=== PATIENT | female | born 1970 | race Caucasian/White ===

== ENCOUNTER 2023-05-18 01:40 | Day surgery (SDC) | payer OTHER, SELFPAY ==
[2023-05-04 09:51] VITALS: BMI 34.9
--- NOTE | 2023-05-16 10:42 | SUR.PREOP ---
Patient called regarding upcoming procedure. Reviewed preop instructions, appointment times, and procedure prep.
[2023-05-18 12:04] VITALS: BP 123/78; PULSE 84; RESP 20; TEMP 36.1; O2SAT 98; BMI 36.8
[2023-05-18] MEDS: LACTATED RINGERS 1,000 ML 150 ML IV CONT (12:06)
--- NOTE | 2023-05-18 12:36 | P.PNAN_ITS ---
Anes - Initial Pre Proc Eval Procedure: Operation Date: 05/18/23 14:00 Proposed Procedures p Colonoscopy - Renzo Moreira MD Date/Time: 05/18/23 12:36 Surgeon: Renzo Moreira MD Pre Op Diagnosis: Family History of Colon Cancer Patient Data Age: 52 Gender: F Height: 1.55 m Weight: 88.4 kg Last Vital Signs Temp 97.0 F L 05/18/23 12:04 Pulse 84 05/18/23 12:04 Resp 20 05/18/23 12:04 BP 123/78 05/18/23 12:04 Pulse Ox 98 05/18/23 12:04 O2 Del Method Room Air 05/18/23 12:04 Allergies Allergy/AdvReac Type Severity Reaction Status Date / Time sulfamethoxazole Allergy Rash Verified 05/18/23 12:02 [From Bactrim] trimethoprim [From Bactrim] Allergy Rash Verified 05/18/23 12:02 Home Medications Medication Instructions Recorded Confirmed Type levothyroxine 150 mcg tablet 150 mcg PO DAILY 05/04/23 05/18/23 History Patient hx anesthesia problems: none Family hx anesthesia problems: none Results Review: All pre-operative results and documents have been reviewed as part of the pre- operative evaluation. [facility] Social History Social History Smoking status: Never smoker Alcohol intake: current Alcohol use details: Rarely Substance use type: does not use Living arrangements: other Additional living arrangements comments: with sp Anes - Eval Final PreProcedure Day of Procedure 05/18/23 12:36 Patient weight: obese Heart: regular rate and rhythm Lungs: clear to auscultation Airway: Mallampati scale class II Neurological: alert and oriented Last oral intake: >/= 8 hours ASA classification: II Emergent: no Anesthetic plan: proceed Anesthesia type and monitoring: general GIVS and standard monitoring Results Review: All pre-operative results and documents have been reviewed as part of the pre- operative evaluation. Informed Consent: The patient's anesthetic plan and its attendant risks and benefits were discussed with the patient/family/POA. Questions were solicited and answers provided to the satisfaction of the patient/family/POA.
--- NOTE | 2023-05-18 13:16 | PM.HPGS ---
History of Present Illness History of Present Illness Consent: Risks, benefits, and alternatives have been discussed and questions answered. Patient agrees to proceed with procedure. Chief complaint: Family History of Colon Cancer Narrative: Heidy Crandall is a 52 year old female here for colonoscopy, parent had colon cancer, last colonoscopy 5 years ago Review of Systems Constitutional: Constitutional: Denies headache(s) and Denies weakness Eyes: Eyes: Denies blurry vision ENT: Reports Normal hearing present, Denies headache(s) and Denies neck pain Cardiovascular: Cardiovascular: Denies chest pain and Denies dyspnea Respiratory: Respiratory: Denies dyspnea Gastrointestinal: Gastrointestinal: Reports no additional gastrointestinal complaints Genitourinary: Genitourinary: Denies dysuria Musculoskeletal: Musculoskeletal: Denies neck pain Integumentary/Breasts: Skin/Breast: Denies dry skin Neurologic: Reports Normal hearing present, Denies headache(s) and Denies weakness Psychiatric: Psychiatric: Denies anxiety Endocrine: Endocrine: Denies change in body appearance Hematologic/Lymphatic: Hematologic/Lymphatic: Denies easy bleeding Allergic/Immunologic: Allergic/Immunologic: Denies urticaria PMF Past Medical History Medical History (Updated 05/18/23 @ 13:17 by Renzo Moreira MD) Family history of colon cancer Social History Social History Smoking status: Never smoker Alcohol intake: current Alcohol use details: Rarely Substance use type: does not use Living arrangements: other Additional living arrangements comments: with sp Meds Home Medications and Allergies Home Medications Medication Instructions Recorded Confirmed Type levothyroxine 150 mcg tablet 150 mcg PO DAILY 05/04/23 05/18/23 History Allergies Allergy/AdvReac Type Severity Reaction Status Date / Time sulfamethoxazole Allergy Rash Verified 05/18/23 12:02 [From Bactrim] trimethoprim [From Bactrim] Allergy Rash Verified 05/18/23 12:02 Vital Signs Vital Signs - 24 hr 05/18/23 12:04 Temperature 97.0 F L Pulse Rate 84 Respiratory Rate 20 Blood Pressure 123/78 Pulse Oximetry 98 Oxygen Delivery Room Air Exam Const: General: comfortable and no acute distress HENMT: Face/Nose/Sinus: Normal nares present Eyes: General: appearance normal, both eyes and all related structures Neck: Neck: no JVD Resp: Auscultation: clear to auscultation bilaterally Cardio: Rate: regular rate Rhythm: regular rhythm GI: Inspection: non-distended GI Palp: Yes Soft to palpation Skin: General skin exam: normal color Neuro: General: gait normal Speech: normal speech Extrem: General: normal to inspection Psych: Mental Status: mental status grossly normal Assessment and Plan Assessment and plan (1) Family history of colon cancer: Code(s): Z80.0 - Family history of malignant neoplasm of digestive organs Status: Acute Assessment and Plan: colonoscopy
[2023-05-18 13:41] VITALS: BP 124/76; PULSE 79; RESP 20; O2SAT 100
[2023-05-18 13:51] VITALS: BP 123/77; PULSE 81; RESP 16; O2SAT 99
[2023-05-18 14:01] VITALS: BP 128/81; PULSE 76; RESP 17; O2SAT 99
== END 2023-05-18 14:15 | disposition home or self-care (01) ==
PROVIDERS: PCP Internal Medicine; Visit Provider Internal Medicine Gastroenterology
PROC: 0DJD8ZZ Inspection of Lower Intestinal Tract, Via Natural or Artificial Opening Endoscopic (ICD-10-PCS; CPT 45378; principal; 2023-05-18 14:00)
DX: Z12.11 Encounter for screening for malignant neoplasm of colon (principal); D12.4 Benign neoplasm of descending colon; E66.9 Obesity, unspecified; Z68.36 Body mass index [BMI] 36.0-36.9, adult; Z80.0 Family history of malignant neoplasm of digestive organs
CPT/HCPCS: 45385; 88305; J7120

== ENCOUNTER 2024-02-10 09:46 | Outpatient (CLI) | payer OTHER, SELFPAY ==
--- NOTE | ~2024-02-10 | MR_ITS ---
EXAMINATION: MR knee RT wo con DATE: 02/10/2024 10:20 INDICATION: CHRONIC PAIN OF RIGHT KNEE TECHNIQUE: Magnetic resonance imaging (MRI) of the right knee was performed without intravenous contr ast. Sequences included axial PD-weighted FS FSE, coronal PD-weighted FSE and PD-weighted FS FSE, sag ittal PD-weighted FSE, and sagittal T2-weighted FS FSE. COMPARISON: None. FINDINGS: Medial compartment: Moderate diffuse cartilage thinning. Moderate osteophytosis. Complex medial meniscal tear involving t he anterior horn body and posterior horn, with anterior extrusion and a small meniscal flap on the po sterior apex. Lateral compartment: Mild diffuse cartilage thinning and osteophytosis. Meniscus intact. Patellofemoral compartment: Mild cartilage signal abnormality. Mild osteophytosis. Retinacula intact. Ligaments and tendons: The ACL, PCL, MCL, and LCL are intact. Remaining flexor and extensor tendons are intact. Fluid: No significant fluid collection. Small volume joint fluid. Osseous/other: No suspicious focal or diffuse marrow signal. IMPRESSION: Complex tear of the meniscus involving the anterior horn, body, and posterior horn. Anterior meniscal extrusion. Posterior apical meniscal flap. 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 Reviewed, dictated and finalized at location K. IMPRESSION: Complex tear of the meniscus involving the anterior horn, body, and posterior h orn. Anterior meniscal extrusion. Posterior apical meniscal flap. Tricompartmental osteoarthritic arthritis, moderate-severe in the medial compar tment.
== END 2024-02-10 09:47 | disposition home or self-care (01) ==
LOC: ANHIMG 09:51
PROVIDERS: PCP Internal Medicine; Visit Provider Orthopaedic Surgery
DX: S83.231A Complex tear of medial meniscus, current injury, right knee, initial encounter (principal); X58.XXXA Exposure to other specified factors, initial encounter
CPT/HCPCS: 73721

== ENCOUNTER 2024-09-12 01:12 | Day surgery (SDC) | payer OTHER, SELFPAY ==
[2024-08-30 08:33] VITALS: BMI 39.4
--- OUTSIDE RECORDS SUMMARY | 2024-09-12 01:15 | XMS_ITS | Encounter Summary ---
Author Organization [employer] Address 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
--- OUTSIDE RECORDS SUMMARY | 2024-09-12 01:15 | XMS_ITS | Clinical Summary ---
Author Organization [facility] Address [address] [place] [address] Phone Care Team Providers Care Deployment Technician Name Role Phone [facility], External Provider Primary Care Provider U navailable Allergies Active Allergy Reactions Criticality Noted Date Comments Sulfamethoxazole-Trimethoprim Rash Low 2010 Medications levothyroxine (SYNTHROID) 88 mcg Oral tablet Take 88 mcg by mouth daily skirt clipper. Active oxaprozin (DAYPRO) 600 mg Oral tablet Take 1,200 mg by mouth daily. Active vit-iron fumarate-FA ( S) 27-0.8 mg Oral Tab Take 1 Tab by mouth daily. Active calcium-vitamin D3 (OS-SANDEE 500+D) 500 mg(1,250mg) -200 unit Oral tablet Take 1 Tab by mouth daily. Active cyanocobalamin 1,000 mcg Oral Tab Take 1,000 mcg by mouth daily. Active Active Problems No known active problems Encounters Date Type Department Care Team Description 09/10/2024 External Device Data [facility]STRA[facility] Provider, Abstract 07/24/2024 External Device Data [facility]STRACTION Provider, Abstract 07/16/2024 External Device Data [facility]STRACTION Provider, Abstract 07/16/2024 External Device Data [facility] Provider, Abstract 07/13/2024 External Device Data [facility] Provider, Abstract 07/12/2024 External Device Data [facility] Provider, Abstract 07/10/2024 External Device Data [facility] Provider, Abstract 06/25/2024 External Device Data [facility]STRACTION Provider, Abstract from Last 3 Months Social History Tobacco Use Types Packs/Day Years Used Date Smoking Tobacco: Never Alcohol Use Standard Drinks/Week Comments Yes 0 (1 standard drink = 0.6 oz pur e alcohol) socially Comments Unknown Sex and Gender Information Value Date Recorded Sex Assigned at Not on file 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 Gender Identity Not on file Sexual Orientation Not on file Last Filed Vital Signs Vital Sign Reading Time Taken Comments Blood Pressure 115/68 03/10/2011 2:30 PM CDT Pulse 62 03/10/2011 2:30 PM CDT Temperature 36.4 C (97.6 F) 03/10/2011 2:30 PM CDT Respiratory Rate 16 03/10/2011 2:30 PM CDT Oxygen Saturation 98% 03/10/2011 2:30 PM CDT Inhaled Oxygen Concentration - - Weight 76.7 kg (169 lb) 03/10/2011 9:36 AM CDT Height 157.5 cm (5' 2 ) 03/03/2011 8:57 AM CDT Body Mass Index 30.91 03/03/2011 8:57 AM CDT Plan of Treatment Health Maintenance Due Date Last Done Comments Pre-Diabetes and Diabetes Screening 1970 HEPATITIS B VACCINES (1 of 3 - 19+ 3-dose series) 1989 HPV/Cotest (21-29) 09/02/1991 CERVICAL CANCER SCREENING 2000 HPV/Cotest (30-65) 2000 PAP SMEAR 2000 COLORECTAL SCREENING 09/02/2015 Colorectal Cancer Screening 09/02/2015 FIT-DNA Q 3 years 09/02/2015 FIT/FOBT Q 1 year 09/02/2015 Flex Sig/CT Colonography Q 5 years 09/02/2015 INFLUENZA VACCINE (#1) 2023 COVID-19 Vaccine (2023-2 5 season) 2024 03/17/2021, 07/01/2020, 06/03/2020 BREAST CANCER SCREENING 01/21/2025 01/22/20, 11/15/2022, 11/15/2022, Additional history exists DTAP/TDAP/TD VACCINES (4 - T d or Tdap) 03/31/2031 03/31/2021, 03/01/2021, 08/07/2019 ZOSTER VACCINE Completed 03/31/2021, 03/01/2021 Procedures Procedure Name Priority Date/Time Associated Diagnosis Comments MAMMO 3D NELLIE SCREEN BILAT W OR WO CAD Routine 01/22/2024 2:57 PM CDT Encounter for screening mammogram for malignant neoplasm of breast from Last 3 Months or Most Recently Relevant to Health Maintenance Results * MAMMO SCRN BILAT 3D NELLIE W OR WO CAD (01/22/2024 2:57 PM CDT) Anatomical Region Laterality Modality Breast Bilateral Mammography 01/22/2024 2:58 PM CDT Impressions 01/23/2024 10:48 AM CDT IMPRESSION: 1. BI-RADS Category 2. benign findings. Annual screening mammography recommended. 2. Breast Composition: The breasts are heterogeneously dense, which may obscure small masses or lesions. A) A negative report should not delay a biopsy if a dominant or clinically suspicious mass is present. B) Adenosis and dense breasts may obscure an underlying neoplasm. C) Study interpreted with computer-aided detection. MQSA BI-RADS Categories: Category 0 - needs additional imaging evaluation. Category 1 - negative. Category 2 - benign findings. Category 3 - probably benign findings, but short interval followup is recommended. Category 4 - suspicious abnormality-biopsy should be considered. Category 5 - highly suggestive of malignancy and appropriate action should be taken. Narrative 01/23/2024 10:48 AM CDT EXAMINATION: MAMMO 3D NELLIE SCREEN BILAT W OR WO CAD WITH 3-D TOMOSYNTHESIS AND COMPUTER-AIDED DETECTION (CAD) DATE: 01/22/2024 2:57 PM COMPARISON STUDIES: November 15, 2022, December 27, 2005. CLINICAL HISTORY: Screening, no complaints. Family history of breast CA, grandmother. Encounter for screening mammogram for malignant neoplasm of breast FINDINGS: Bilateral CC, MLO, 2-D and 3-D acquisitions. Scattered residual fibroglandular parenchyma . Similar in appearance and distribution to the previous exams. No evidence of dominant mass, architectural distortion, skin thickening, nipple retraction or suspicious clusters of microcalcifications. Benign calcifications redemonstrated. . Hari Tristan MD MAMMO ORDERABLES Final Result from Last 3 Months or Most Recently Relevant to Health Maintenance Insurance [employer] PPO Member Subscriber Plan / Payer (Ef fective 2022-Present) Name:Lowmaurice Heidy M Relation to Subscriber:Self Name:Raz Heidy M Payer ID:Not on file Group ID:Not on file Type:PPO Address: [facility] [id number] OPEN ACCESS O Advance Directives For more information, please contact: [phone] * Full Code (Latest Code Status on File) Date Activated Date Inactivated Comments 03/10/2011 12:39 PM 03/10/2011 5:44 PM * Full Code Date Activated Date Inactivated Comments 03/10/2011 12:34 PM 03/10/2011 12:39 PM * Full Code Date Activated Date Inactivated Comments 03/10/2011 9:23 AM 03/10/2011 12:34 PM Care Teams Deployment Technician Relationship Specialty Start Date End Date [facility], External Provider [address] [place] [address] PCP - General 03/03/11
--- OUTSIDE RECORDS SUMMARY | 2024-09-12 01:15 | XMS_ITS | Clinical Summary ---
Author Organization [facility] Address [address] [place] [address] Care Team Providers Care Pocket Cutter Name Role Phone Hector Ansari MD Primary Care Provider [phone] Allergies Active Allergy Reactions Criticality Noted Date Comments Sulfamethoxazole-Trimethop rim Unknown 02/13/2023 Bee Pollen Hives,Itching,Swelling 02/23/2023 Dog Dander Eyes Water & Itch,Itching,Rash,Sneezing Low 02/23/2023 Soy Allergy (Obsolete) Hives,Itching,Jhonatan sea and Vomiting,Rash Low 02/23/2023 Immunizations Immunization Administration Dates Next Due MODERNA COVID-19 (12+) MRNA, LNP-S, PF, 100 MCG/ 0.5 ML DOSE 03/17/2021,07/01/2020,06/03/2020 Social History Tobacco Use Types Packs/Day Years Used Date Smoking Tobacco: Never Assessed Comments Unknown Sex and Gender Information Value Date Recorded Sex Assigned at Not on file Legal Sex Female 7:33 PM CDT Gender Identity Not on file Sexual Orientation Not on file Plan of Treatment Health Maintenance Due Date Last Done Comments Cervical Cancer Screening Pa p Smear (Age 30 to 64) Every 3 Years 1970 Colorectal Cancer Screening Colonoscopy (10 Years) 1970 Annual Physical 1973 Hepatitis C 1988 Hepatitis B Vaccines (1 of 3 - 19+ 3-dose series) 1989 Cervical Cancer Screening Pa p with HPV Testing (Age 30 to 64) Every 5 Years 2000 Cervical Cancer Screening wi th HPV 2000 Mammogram Screening 2010 Pneumococcal Vaccine: 50+ Years (1 of 1 - PCV) 2020 Zoster Vaccines (1 of 2) 2020 COVID-19 Vaccine (4 - 2023-2 5 season) 2024 03/17/2021, 07/01/2020, 06/03/2020 DTaP, Tdap and Td Vaccines ( 2 - Td or Tdap) 08/06/2029 08/07/2019 Meningococcal B Vaccine Aged Out No l onger eligible based on patient's age to complete this topic Meningococcal Vaccine Aged Out No ryan ariela eligible based on patient's age to complete this topic RSV Immunizations Under 20 Months Aged Out No longer eligible b ased on patient's age to complete this [place] [address] [facility] Care Teams Pocket Cutter Relationship Specialty Start Date End [place] [phone] (Work) PCP - General 06/03/14
--- OUTSIDE RECORDS SUMMARY | 2024-09-12 01:15 | XMS_ITS | Encounter Summary ---
Author Organization [facility] Address [address] [place] [address] Care Team Providers Care Shore Working Supervisor Name Role Phone Imani, External Provider Primary Care Provider Jeremías ugalde Encounter Details Date Type Department Care Team (Late st Contact Info) Description 09/10/2024 External Device Data [facility] Provider, Abstract NO ADDRESS ON FILE Social History Tobacco Use Types Packs/Day Years Used Date Smoking Tobacco: Never Alcohol Use Standard Drinks/Week Comments Yes 0 (1 standard drink = 0.6 oz pur e alcohol) socially Comments Unknown Sex and Gender Information Value Date Recorded Sex Assigned at Not on file 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
--- OUTSIDE RECORDS SUMMARY | 2024-09-12 01:15 | XMS_ITS | Data Portability ---
Author Organization 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 Studies ordered as below. Discussed plan with patient/caregiver , who expressed understanding. Follow up as noted below. Not available 07/26/2022 11:36:27 01/26/2023 01/26/2023 Recommends healthy nutrition, including a diet rich in fruits and vegetables, minimizing simple carbohydrates, salt, and saturated fats. Encouraged regular cardiovascular exercise such as walking at least 30 minutes daily, 5 times per week. Not available 01/26/2023 10:18:36 07/27/2023 07/27/2023 Recommends healthy nutrition, including a diet rich in fruits and vegetables, minimizing simple carbohydrates, salt, and saturated fats. Encouraged regular cardiovascular exercise such as walking at least 30 minutes daily, 5 times per week. Not available 07/27/2023 12:27:57 03/08/2024 03/08/2024 Patient presente d for follow up. Studies ordered as below. Discussed plan with patient/caregiver , who expressed understanding. Follow up as noted below. [email or web address] Not available 03/08/2024 12:32:30 06/10/2024 06/10/2024 Patient presente d for follow up. Studies ordered as below. Discussed plan with patient/caregiver , who expressed understanding. Follow up as noted below. Not available 06/10/2024 12:24:43 Plan of Treatment Reminders Order Date Submit Date Provider Last Modified By Organization Details Last Modified Time Details Appointments ESTABLISH ED PATIENT 15 2024 08:15A Mario Tristan MD Not available Not available Not available Lab urinalysi s complete, reflex culture 2023 024 [email or web address] [facility], [address], [address], [place], [address], 03/15/2024 09:10:15 lipid panel, serum 2023 024 [email or web address] [facility], [address], [address], [place], [address], 03/15/2024 09:10:14 CMP, serum or plasma 2023 024 [email or web address] [facility], [address], [address], [place], [address], 03/15/2024 09:10:14 ANURADHA (antinucl ear antibodie s) panel, serum 2023 024 ALEX [facility], [address], [address], [place], [address], 12/08/2023 14:36:26 rf (rheumato id factor), serum 2023 024 ALEX [facility], [address], [place], [address], 12/08/2023 14:36:28 ccp (cyclic citrullin ated peptide) igg, serum 2023 024 ALEX [facility], [address], [place], [address], 07/27/2023 12:35:16 ESR (erythroc yte sedimenta tion rate), blood 2023 024 ALEX [facility], [address], [place], [address], 12/08/2023 14:36:31 C-reactiv e protein, quantitat lucinda, serum or plasma 2023 024 ALEX [facility], [address], [place], [address], 07/27/2023 12:35:15 HbA1c (hemoglob in A1c), blood 2023 024 [email or web address] [facility], [address], [place], [address], 08/03/2023 08:25:30 HIV 1 + 2, meaningfu l use set 2023 024 ALEX [facility], [address], [place], [address], 12/08/2023 14:36:29 lipid panel, serum 2022 023 [email or web address] [facility], [address], [place], [address], 02/02/2023 08:17:44 CBC w/ auto diff 2022 023 [email or web address] [facility], [address], [place], [address], 02/02/2023 08:17:44 CMP, serum or plasma 2022 023 mbenfer [facility], [address], [place], [address], 02/02/2023 08:17:45 HbA1c (hemoglob in A1c), blood 2022 023 [email or web address] [facility], [address], [place], [address], 02/02/2023 08:17:45 TSH + free T4, serum 2022 023 mariel [facility], [address], [place], [address], 02/02/2023 08:17:44 T3, free, serum or plasma 2022 023 mariel [facility], [address], [place], [address], 02/02/2023 08:17:44 HIV 1 + 2, meaningfu l use set 2022 023 ALEX [facility], [address], [place], [address], 01/26/2023 10:41:50 urinalysi s complete, reflex culture 2022 023 ALEX [facility], [address], [place], [address], 07/29/2022 07:37:25 TSH + free T4, serum 2022 023 ALEX [facility], [address], [place], [address], 07/29/2022 07:37:25 T3, free, serum or plasma 2022 023 ALEX [facility], [address], [place], [address], 07/29/2022 07:37:26 Referral gynecolog ist referral 2024 025 [email or web address] Kwesi Johnson MD, [address] [place], [address], 07/23/2024 19:49:43 gastroent erologist referral - To eval and treat. Thank you 2024 025 mariel arora MD, [address], [address], [place], [address], 07/08/2024 08:33:04 gynecolog ist referral 2023 024 mariel Johnson MD, [address] [place], [address], 08/24/2023 08:22:36 gynecolog ist referral 2022 023 [email or web address] Kwesi Johnson MD, [address] [place], [address], 02/23/2023 08:49:29 gastroent erologist referral 2022 023 [email or web address] Not available 02/23/2023 08:49:29 podiatris t referral 2022 023 mariel Christianson DP, [address] [place], [address], 07/21/2023 08:10:44 Procedures None recorded. Surgeries None recorded. Imaging bone density 2024 025 mariel [facility] Patient Access Centralized Scheduling, Centralized Scheduling, [address], [place], [address], 06/24/2024 08:37:31 bone density 2023 024 mariel [facility], [address], [place], [address], 08/10/2023 08:13:46 MAMMO, screening , digital, bilateral 2023 024 ALEX [facility], [address], [place], [address], 01/25/2024 00:22:15 MAMMO, screening , digital, bilateral 2022 023 [facility], [address], [place], [address], 01/26/2023 10:45:34 XR, calcaneus 2022 023 [facility], [address], [address], [place], [address], 08/04/2022 08:26:42 US, thyroid 2022 023 [email or web address] [facility], [address], [address], [place], [address], 08/09/2022 08:38:14 Medication Orders duloxetin e 30 mg capsule,d elayed release 2024 025 ALEX Not available 06/10/2024 12:50:00 levothyro xine 137 mcg tablet 2024 025 ALEX Not available 06/10/2024 12:50:01 phentermi ne 37.5 mg tablet 2024 025 ALEX Not available 06/10/2024 12:50:02 Celebrex 200 mg capsule 2023 024 ALEX Not available 03/08/2024 13:33:45 duloxetin e 30 mg capsule,d elayed release 2023 024 ALEX Not available 03/08/2024 13:33:46 duloxetin e 60 mg capsule,d elayed release 2023 025 ALEX Not available 06/10/2024 12:31:36 liothyron ine 5 mcg tablet 2022 023 Not available 07/27/2023 12:11:32 phentermi ne 37.5 mg tablet 2022 023 Not available 07/27/2023 12:27:06 cefdinir 300 mg capsule 2022 023 Not available 06/10/2024 12:26:10 levothyro xine 137 mcg tablet 2022 023 Not available 04/17/2023 07:21:28 liothyron ine 5 mcg tablet 2022 023 Not available 07/27/2023 12:11:32 phentermi ne 37.5 mg tablet 2022 023 Not available 07/27/2023 12:27:06 Patient TargetsNo targets recorded. Patient Instructions Encounter Date Encounter Id Patient Instructions Last Modified By Organization Details Last Modified Time 01/26/2023 [id number] advised to lose weight Not available 01/26/2023 10:37:32 Discussed and explained advance directives such as standard forms to the {{patient caregiv er patient and caregiver}}. Face to face discussion lasted for a duration of ___ minutes. Not available 01/26/2023 10:18:15 07/27/2023 [id number] advised to lose weight [email or web address] Not available 07/27/2023 12:35:05 Reason for Referral Traffic Or System Dispatcher Referral for Heel pain Referring Physician: [facility], Encounter Date: 07/26/2022 Grill Associate Referral for Family history of cancer of colon Referring Physician: Hari Tr[facility], Encounter Date: 01/26/2023 Patient Accounts Manager Referral for Gy necologic examination Referring Physician: [facility]ari [facility], Encounter Date: 01/26/2023 Patient Accounts Manager Referral for Gy necologic examination Referring Physician: Hari [facility], Encounter Date: 07/27/2023 Patient Accounts Manager Referral for Gy necologic examination Referring Physician: Hari Tr[facility], Encounter Date: 06/10/2024 Grill Associate 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 Thank you Referring Physician: Hari Tr[facility], Encounter Date: 06/10/2024 Results Created Date Observation Date Name Description Value Unit Range Abnormal Flag Note LastModifiedBy Organization Detail LastModifiedTime 07/28/19 23 07/28/2022 TSH+F REE T4 TSH 4.560 uIU/m L 0.450- 4.500 above high normal Not Available [facility] ([facility]) [address] [place], [address], 07/29/2022 07:37:25 07/28/1907/28/2022 TSH+F REE T4 T4,free(dire ct) 1.13 NG/dL 0.82-1 .77 Not Available [facility] ([facility]) [address] [place], [address], 07/29/2022 07:37:25 07/28/1907/28/2022 UA/M W/RFL X CULTU RE, ROUTI NE specific gravity 1.018 1.005- 1.030 Not Available [facility] ([facility]) [address] [place], [address], 07/29/2022 07:37:25 07/28/1907/28/2022 UA/M W/RFL X CULTU RE, ROUTI NE pH 5.5 5.0-7. 5 Not Available [facility] ([facility]) [address] [place], [address], 07/29/2022 07:37:25 07/28/1907/28/2022 UA/M W/RFL X CULTU RE, ROUTI NE urine-color YELLOW yellow Not Available [facility] ([facility]) [address] [place], [address], 07/29/2022 07:37:25 07/28/1907/28/2022 UA/M W/RFL X CULTU RE, ROUTI NE appearance CLEAR clear Not Available [facility] ([facility]) [address] [place], [address], 07/29/2022 07:37:25 07/28/1907/28/2022 UA/M W/RFL X CULTU RE, ROUTI NE WBC esterase 2+ negati ve abnormal Not Available [facility] ([facility]) [address] [place], [address], 07/29/2022 07:37:25 07/28/1907/28/2022 UA/M W/RFL X CULTU RE, ROUTI NE protein NEGATI VE negati ve/tra ce Not Available [facility] ([facility]) [address] [facility], [place], [address], 07/29/2022 07:37:25 07/28/1907/28/2022 UA/M W/RFL X CULTU RE, ROUTI NE glucose NEGATI VE negati ve Not Available [facility] ([facility]) [address] [place], [address], 07/29/2022 07:37:25 07/28/1907/28/2022 UA/M W/RFL X CULTU RE, ROUTI NE ketones NEGATI VE negati ve Not Available [facility] ([facility]) [address] [place], [address], 07/29/2022 07:37:25 07/28/1907/28/2022 UA/M W/RFL X CULTU RE, ROUTI NE occult blood NEGATI VE negati ve Not Available [facility] ([facility]) [address] [place], [address], 07/29/2022 07:37:25 07/28/1907/28/2022 UA/M W/RFL X CULTU RE, ROUTI NE bilirubin NEGATI VE negati ve Not Available [facility] ([facility]) [address] [place], [address], 07/29/2022 07:37:25 07/28/1907/28/2022 UA/M W/RFL X CULTU RE, ROUTI NE urobilinogen ,semi-qn 0.2 mg/dL 0.2-1. 0 Not Available [facility] ([facility]) [address] [place], [address], 07/29/2022 07:37:25 07/28/1907/28/2022 UA/M W/RFL X CULTU RE, ROUTI NE nitrite, urine NEGATI VE negati ve Not Available [facility] ([facility]) [address] [place], [address], 07/29/2022 07:37:25 07/28/1907/28/2022 UA/M W/RFL X CULTU RE, ROUTI NE microscopic examination SEE BELOW: Micro scopi c was indic ated and was perfo rmed. Not Available [facility] ([facility]) [address] [place], [address], 07/29/2022 07:37:25 07/28/19 23 07/28/2022 UA/M W/RFL X CULTU RE, ROUTI NE WBC 0-5 /hpf 0 - 5 Not Available [facility] ([facility]) [address] [facility], [place], [address], 07/29/2022 07:37:25 07/28/19 23 07/28/2022 UA/M W/RFL X CULTU RE, ROUTI NE RBC NONE SEEN /hpf 0 - 2 Not Available [facility] ([facility]) [address] [place], [address], 07/29/2022 07:37:25 07/28/19 23 07/28/2022 UA/M W/RFL X CULTU RE, ROUTI NE epithelial cells (non renal) 0-10 /hpf 0 - 10 Not Available [facility] ([facility]) [address] [place], [address], 07/29/2022 07:37:25 07/28/1907/28/2022 UA/M W/RFL X CULTU RE, ROUTI NE epithelial cells (renal) QUEBRACHO TANNER Not Available [facility] ([facility]) [address] [place], [address], 07/29/2022 07:37:25 07/28/1907/28/2022 UA/M W/RFL X CULTU RE, ROUTI NE casts NONE SEEN /lpf none seen Not Available [facility] ([facility]) [address] [facility], [place], [address], 07/29/2022 07:37:25 07/28/1907/28/2022 UA/M W/RFL X CULTU RE, ROUTI NE cast type QUEBRACHO TANNER Not Available [facility] ([facility]) [address] [facility], [place], [address], 07/29/2022 07:37:25 07/28/19 23 07/28/2022 UA/M W/RFL X CULTU RE, ROUTI NE crystals QUEBRACHO TANNER Not Available [facility] ([facility]) [address] [facility], [place], [address], 07/29/2022 07:37:25 07/28/19 23 07/28/2022 UA/M W/RFL X CULTU RE, ROUTI NE crystal type QUEBRACHO TANNER Not Available [facility] ([facility]) [address] [facility], [place], [address], 07/29/2022 07:37:25 07/28/19 23 07/28/2022 UA/M W/RFL X CULTU RE, ROUTI NE mucus threads QUEBRACHO TANNER Not Available [facility] ([facility]) [address] [facility], [place], [address], 07/29/2022 07:37:25 07/28/19 23 07/28/2022 UA/M W/RFL X CULTU RE, ROUTI NE bacteria NONE SEEN none seen/f ew Not Available [facility] ([facility]) [address] [facility], [place], [address], 07/29/2022 07:37:25 07/28/19 23 07/28/2022 UA/M W/RFL X CULTU RE, ROUTI NE yeast QUEBRACHO TANNER Not Available [facility] ([facility]) [address] [facility], [place], [address], 07/29/2022 07:37:25 07/28/19 23 07/28/2022 UA/M W/RFL X CULTU RE, ROUTI NE trichomonas QUEBRACHO TANNER Not Available [facility] ([facility]) [address] [facility], [place], [address], 07/29/2022 07:37:25 07/28/19 23 07/28/2022 UA/M W/RFL X CULTU RE, ROUTI NE comment QUEBRACHO TANNER Not Available [facility] ([facility]) [address] [facility], [place], [address], 07/29/2022 07:37:25 07/28/19 23 07/28/2022 UA/M W/RFL X CULTU RE, ROUTI NE microscopic examination QUEBRACHO TANNER Not Available [facility]) [address] [facility], [place], [address], 07/29/2022 07:37:25 07/28/19 23 07/28/2022 UA/M W/RFL X CULTU RE, ROUTI NE urinalysis reflex COMMEN T This speci men has refle xed to a Urine Cultu re. Not Available [facility] ([facility]) [address] [facility], [place], [address], 07/29/2022 07:37:25 07/28/19 23 07/29/2022 UA/M W/RFL X CULTU RE, ROUTI NE urine culture, routine FINAL REPORT Not Available [facility] ([facility]) [address] [facility], [place], [address], 07/29/2022 07:37:25 07/28/19 23 07/29/2022 UA/M W/RFL X CULTU RE, ROUTI NE result 1 COMMEN T Cultu re shows less than 10,00 0 colon y formi ng units of bacte will per brent liter of urine . This colon y count is not gener ally consi dered to be clini randi tank bishop Not Available [facility] ([facility]) [address] [place], [address], 07/29/2022 07:37:25 07/28/19 23 07/28/2022 TRIIO DOTHY DORINDA E (T3), FREE triiodothyro nine (T3), free 2.3 pg/mL 2.0-4. 4 Not Available [facility] ([facility]) [address] [place], [address], 07/29/2022 07:37:26 04/06/2004/11/2023 THYRO ID STIMU LATIN G HORMO NE TSH-icma 6.1 uu/mL above high normal Refer ence Range : Non-P regna nt Adult 0.450 -4.50 0 Pregn pieter First Trime ster 0.100 -4.00 0 Secon d Trime ster 0.200 -4.00 0 Third Trime ster 0.300 -4.50 0 Not Available [facility] [address] [place] [address], [address], 04/12/2023 07:36:58 04/06/2004/07/2023 TRIIO DOTHY DORINDA E (T3), FREE triiodothyro nine (T3), free 2.7 pg/mL 2.0-4. 4 Not Available [facility] ([facility]) [address] [place], [address], 04/12/2023 07:37:00 04/06/2004/07/2023 T4,FR EE(DI RECT) T4,free(dire ct) 1.12 NG/dL 0.82-1 .77 Not Available [facility] ([facility]) [address] [place], [address], 04/12/2023 07:37:00 12/07/19 24 12/07/2023 ANTIN UCLEA R AB 9 BY MULTI PLEX see below: COMMEN T [employer] [employer] [employer] [employer] i[facility] n ----- ----- ----- ----- ----- ----- ----- ----- ----- ----- ----- ----- Condi laston Paresh ency ----- ----- ----- ----- - ----- ----- ----- ----- ---- ----- ---- Antin uclea r Antib josé miguel, SLE, mixed conne ctive Direc t (ANURADHA- D) tissu e disea ses ----- ----- ----- ----- - ----- ----- ----- ----- ---- ----- ---- dsDNA SLE 40 - 60% ----- ----- ----- ----- - ----- ----- ----- ----- ---- ----- ---- Chrom atin Drug induc ed SLE 90% SLE 48 - 97% ----- ----- ----- ----- - ----- ----- ----- ----- ---- ----- ---- SSA (Ro) SLE 25 - 35% Sjogr en's Syndr ome 40 - 70% Neona abhishek Lupus 100% ----- ----- ----- ----- - ----- ----- ----- ----- ---- ----- ---- SSB (La) SLE 10% Sjogr en's Syndr ome 30% ----- ----- ----- ----- - ----- ----- ----- ----- --- ----- ---- Sm (anti -Salomón h) SLE 15 - 30% ----- ----- ----- ----- - ----- ----- ----- ----- --- ----- ---- COMM[employer] EQUIP[employer] MECH[employer]IC Mixed Conne ctive Tissu e Disea se 95% (U1 nRNP, SLE 30 - 50% anti- ribon ucleo prote in) Polym yosit is and/o r [place] tomyo sitis 20% ----- ----- ----- ----- - ----- ----- ----- ----- ---- ----- ---- Scl-7 0 (anti DNA Scler oderm a (diff use) 20 - 35% topoi jerrell ase) Crest 13% ----- ----- ----- ----- - ----- ----- ----- ----- ---- ----- ---- Elidia-1 Polym yosit is and/o r [place] tomyo sitis 20 - 40% ----- ----- ----- ----- - ----- ----- ----- ----- ---- ----- ---- Centr omere B Scler oderm a - Crest varia nt 80% Not Available [facility] ([facility]) [address] [facility], [place], [address], 12/08/2023 14:36:26 12/07/19 24 12/08/2023 ANTIN UCLEA R AB 9 BY MULTI PLEX anti-DNA (ds) Ab qn 1 IU/mL 0-9 Negat lucinda <5 Equiv ocal 5 - 9 Posit lucinda >9 Not Available [facility] ([facility]) [address] [facility], [place], [address], 12/08/2023 14:36:26 12/07/19 24 12/08/2023 ANTIN UCLEA R AB 9 BY MULTI PLEX change consultant antibodies 0.3 ai 0.0-0. 9 Not Available [facility] ([facility]) [address] [facility], [place], [address], 12/08/2023 14:36:26 12/07/19 24 12/08/2023 ANTIN UCLEA R AB 9 BY MULTI PLEX hastings antibodies <0.2 ai 0.0-0. 9 Not Available [facility] ([facility]) [address] [place], [address], 12/08/2023 14:36:26 12/07/19 24 12/08/2023 ANTIN UCLEA R AB 9 BY MULTI PLEX antisclerode rma-70 antibodies <0.2 ai 0.0-0. 9 Not Available [facility] ([facility]) [address] [place], [address], 12/08/2023 14:36:26 12/07/19 24 12/08/2023 ANTIN UCLEA R AB 9 BY MULTI PLEX sjogren's anti-ss-A <0.2 ai 0.0-0. 9 Not Available [facility] ([facility]) [address] [place], [address], 12/08/2023 14:36:26 12/07/19 24 12/08/2023 ANTIN UCLEA R AB 9 BY MULTI PLEX sjogren's anti-ss-B <0.2 ai 0.0-0. 9 Not Available [facility] ([facility]) [address] [place], [address], 12/08/2023 14:36:26 12/07/19 24 12/08/2023 ANTIN UCLEA R AB 9 BY MULTI PLEX antichromati n antibodies <0.2 ai 0.0-0. 9 Not Available [facility] ([facility]) [address] [place], [address], 12/08/2023 14:36:26 12/07/19 24 12/08/2023 ANTIN UCLEA R AB 9 BY MULTI PLEX anti-elidia-1 <0.2 ai 0.0-0. 9 Not Available [facility] ([facility]) [address] [facility], [place], [address], 12/08/2023 14:36:26 12/07/19 24 12/08/2023 ANTIN UCLEA R AB 9 BY MULTI PLEX anti-centrom ere B antibodies <0.2 ai 0.0-0. 9 Not Available [facility] ([facility]) [address] [place], [address], 12/08/2023 14:36:26 12/07/19 24 12/08/2023 HEMOG LOBIN A1C hemoglobin A1C 5.7 % 4.8-5. 6 above high normal Predi abete s: 5.7 - 6.4 Diabe aidan: >6.4 Glyce viki contr ol for adult s with diabe aidan: <7.0 Not Available [facility] ([facility]) [address] [place], [address], 12/08/2023 14:36:27 12/07/19 24 12/08/2023 RHEUM ATOID FACTO R (RF) rheumatoid factor (rf) 10.8 IU/mL <14.0 normal Not Available [facility] [address] [place], [address], 12/08/2023 14:36:28 12/07/19 24 12/08/2023 HIV AB/P2 4 AG WITH REFLE X HIV Ab/P24 Ag screen NON REACTI VE non reacti ve HIV-1 /HIV- 2 antib odies and HIV-1 p24 antig en were NOT detec shala. There is no labor atory evide nce of HIV infec tion. HIV Negat lucinda Not Available [facility] ([facility]) [address] [facility], [place], [address], 12/08/2023 14:36:29 12/07/19 24 12/08/2023 ANTI- CCP AB, IGG/I NH anti-ccp Ab, IgG/IgA 5 units 0-19 Negat lucinda <20 Weak posit lucinda 20 - 39 Moder ate posit lucinda 40 - 59 Stron g posit lucinda >59 Not Available [facility] ([facility]) [address] [facility], [place], [address], 12/08/2023 14:36:30 12/07/19 24 12/08/2023 SEDIM ENTAT ION RATE- WESTE RGREN sedimentatio n rate-westerg ambreen 4 mm/HR 0-40 normal Not Available [facility] ([facility]) [address] [facility], [place], [address], 12/08/2023 14:36:31 12/07/19 24 12/08/2023 C-EBENEZER CTIVE PROTE IN, QUANT C-reactive protein, quant 5 mg/L 0-10 normal Not Available [facility] ([facility]) [address] [facility], [place], [address], 12/08/2023 14:36:32 03/18/20 24 03/19/2024 COMP. METAB OLIC PANEL (14) glucose 96 mg/dL 70-99 normal Not Available [facility] ([facility]) [address] [place], [address], 03/20/2024 06:37:09 03/18/20 24 03/19/2024 COMP. METAB OLIC PANEL (14) BUN 10 mg/dL 6-24 normal Not Available [facility] ([facility]) [address] [place], [address], 03/20/2024 06:37:09 03/18/20 24 03/19/2024 COMP. METAB OLIC PANEL (14) creatinine 0.80 mg/dL 0.57-1 .00 normal Not Available [facility] ([facility]) [address] [facility], [place], [address], 03/20/2024 06:37:09 03/18/20 24 03/19/2024 COMP. METAB OLIC PANEL (14) eGFR 88 mL/mi n/1.7 3 >59 normal Not Available [facility] ([facility]) [address] [facility] [place], [address], 03/20/2024 06:37:09 03/18/20 24 03/19/2024 COMP. METAB OLIC PANEL (14) BUN/creatini ne ratio 13 9-23 normal Not Available [facility] ([facility]) [address] [facility], [place], [address], 03/20/2024 06:37:09 03/18/20 24 03/19/2024 COMP. METAB OLIC PANEL (14) sodium 143 mmol/ L 134-14 4 normal Not Available [facility] ([facility]) [address] [facility], [place], [address], 03/20/2024 06:37:09 03/18/20 24 03/19/2024 COMP. METAB OLIC PANEL (14) potassium 4.7 mmol/ L 3.5-5. 2 normal Not Available [facility] ([facility]) [address] [facility] [place], [address], 03/20/2024 06:37:09 03/18/20 24 03/19/2024 COMP. METAB OLIC PANEL (14) chloride 105 mmol/ L 96-106 normal Not Available [facility] ([facility]) [address] [facility] [place], [address], 03/20/2024 06:37:09 03/18/20 24 03/19/2024 COMP. METAB OLIC PANEL (14) carbon dioxide, total 26 mmol/ L 20-29 normal Not Available [facility] ([facility]) [address] [facility] [place], [address], 03/20/2024 06:37:09 03/18/20 24 03/19/2024 COMP. METAB OLIC PANEL (14) calcium 9.3 mg/dL 8.7-10 .2 normal Not Available [facility] ([facility]) [address] [facility] [place], [address], 03/20/2024 06:37:09 03/18/20 24 03/19/2024 COMP. METAB OLIC PANEL (14) protein, total 6.6 g/dL 6.0-8. 5 normal Not Available [facility] ([facility]) [address] [facility] [place], [address], 03/20/2024 06:37:09 03/18/20 24 03/19/2024 COMP. METAB OLIC PANEL (14) albumin 4.2 g/dL 3.8-4. 9 normal Not Available [facility] ([facility]) [address] [facility] [place], [address], 03/20/2024 06:37:09 03/18/20 24 03/19/2024 COMP. METAB OLIC PANEL (14) globulin, total 2.4 g/dL 1.5-4. 5 Not Available [facility] ([facility]) [address] [facility] [place], [address], 03/20/2024 06:37:09 03/18/20 24 03/19/2024 COMP. METAB OLIC PANEL (14) bilirubin, total 0.5 mg/dL 0.0-1. 2 normal Not Available [facility] ([facility]) [address] [facility] [place], [address], 03/20/2024 06:37:09 03/18/20 24 03/19/2024 COMP. METAB OLIC PANEL (14) alkaline phosphatase 113 IU/L 44-121 normal Not Available [facility] ([facility]) [address] [facility] [place], [address], 03/20/2024 06:37:09 03/18/20 24 03/19/2024 COMP. METAB OLIC PANEL (14) AST (SGOT) 19 IU/L 0-40 normal Not Available [facility] ([facility]) [address] [place], [address], 03/20/2024 06:37:09 03/18/20 24 03/19/2024 COMP. METAB OLIC PANEL (14) ALT (SGPT) 16 IU/L 0-32 normal Not Available [facility] ([facility]) [address], [place], [address], 03/20/2024 06:37:09 03/18/20 24 03/19/2024 UA/M W/RFL X CULTU RESTACYI NE specific gravity 1.021 1.005- 1.030 normal Not Available [facility] ([facility]) [address] [place], [address], 03/20/2024 06:37:11 03/18/20 24 03/19/2024 UA/M W/RFL X CULTJeremías REGINA NE pH 6.5 5.0-7. 5 normal Not Available [facility] ([facility]) [address] [place], [address], 03/20/2024 06:37:11 03/18/20 24 03/19/2024 UA/M W/RFL X CULTGNIA HEREDIA NE urine-color YELLOW yellow Not Available [facility] ([facility]) [address] [facility], [place], [address], 03/20/2024 06:37:11 03/18/20 24 03/19/2024 UA/M W/RFL X CULTU REGINA NE appearance CLOUDY clear abnormal Not Available [facility] ([facility]) [address] [facility] [place], [address], 03/20/2024 06:37:11 03/18/20 24 03/19/2024 UA/M W/RFL X CULTU RE, ROUTI NE WBC esterase 1+ negati ve abnormal Not Available [facility] ([facility]) [address] [place], [address], 03/20/2024 06:37:11 03/18/20 24 03/19/2024 UA/M W/RFL X CULTU RE, ROUTI NE protein TRACE negati ve/tra ce Not Available [facility] ([facility]) [address] [facility], [place], [address], 03/20/2024 06:37:11 03/18/2003/19/2024 UA/M W/RFL X CULTU RE, ROUTI NE glucose NEGATI VE negati ve Not Available [facility] ([facility]) [address] [facility], [place], [address], 03/20/2024 06:37:11 03/18/20 24 03/19/2024 UA/M W/RFL X CULTU RE, ROUTI NE ketones NEGATI VE negati ve Not Available [facility] ([facility]) [address] [place], [address], 03/20/2024 06:37:11 03/18/20 24 03/19/2024 UA/M W/RFL X CULTU RE, ROUTI NE occult blood NEGATI VE negati ve Not Available [facility] ([facility]) [address] [place], [address], 03/20/2024 06:37:11 03/18/20 24 03/19/2024 UA/M W/RFL X CULTU RE, ROUTI NE bilirubin NEGATI VE negati ve Not Available [facility] ([facility]) [address] [place], [address], 03/20/2024 06:37:11 03/18/20 24 03/19/2024 UA/M W/RFL X CULTU RE, ROUTI NE urobilinogen ,semi-qn 0.2 mg/dL 0.2-1. 0 normal Not Available [facility] ([facility]) [address] [facility], [place], [address], 03/20/2024 06:37:11 03/18/20 24 03/19/2024 UA/M W/RFL X CULTU RE, ROUTI NE nitrite, urine NEGATI VE negati ve Not Available [facility] ([facility]) [address] [facility], [place], [address], 03/20/2024 06:37:11 03/18/20 24 03/19/2024 UA/M W/RFL X CULTU RE, ROUTI NE microscopic examination SEE BELOW: Micro scopi c was indic ated and was perfo rmed. Not Available [facility] ([facility]) [address] [facility], [place], [address], 03/20/2024 06:37:11 03/18/20 24 03/19/2024 UA/M W/RFL X CULTU RE, ROUTI NE WBC NONE SEEN /hpf 0 - 5 Not Available [facility] ([facility]) [address] [facility], [place], [address], 03/20/2024 06:37:11 03/18/20 24 03/19/2024 UA/M W/RFL X CULTU RE, ROUTI NE RBC 0-2 /hpf 0 - 2 Not Available [facility] ([facility]) [address] [facility], [place], [address], 03/20/2024 06:37:11 03/18/20 24 03/19/2024 UA/M W/RFL X CULTU RE, ROUTI NE epithelial cells (non renal) 0-10 /hpf 0 - 10 Not Available [facility] ([facility]) [address] [facility], [place], [address], 03/20/2024 06:37:11 03/18/20 24 03/19/2024 UA/M W/RFL X CULTU RE, ROUTI NE epithelial cells (renal) QUEBRACHO TANNER Not Available [facility] ([facility]) [address] [facility], [place], [address], 03/20/2024 06:37:11 03/18/20 24 03/19/2024 UA/M W/RFL X CULTU RE, ROUTI NE casts NONE SEEN /lpf none seen Not Available [facility] ([facility]) [address] [facility], [place], [address], 03/20/2024 06:37:11 03/18/20 24 03/19/2024 UA/M W/RFL X CULTU RE, ROUTI NE cast type QUEBRACHO TANNER Not Available [facility] ([facility]) [address] [facility], [place], [address], 03/20/2024 06:37:11 03/18/20 24 03/19/2024 UA/M W/RFL X CULTU RE, ROUTI NE crystals QUEBRACHO TANNER Not Available [facility] ([facility]) [address] [facility], [place], [address], 03/20/2024 06:37:11 03/18/20 24 03/19/2024 UA/M W/RFL X CULTU RE, ROUTI NE crystal type QUEBRACHO TANNER Not Available [facility] ([facility]) [address] [facility], [place], [address], 03/20/2024 06:37:11 03/18/20 24 03/19/2024 UA/M W/RFL X CULTU RE, ROUTI NE mucus threads QUEBRACHO TANNER Not Available [facility] ([facility]) [address] [facility], [place], [address], 03/20/2024 06:37:11 03/18/20 24 03/19/2024 UA/M W/RFL X CULTU RE, ROUTI NE bacteria NONE SEEN none seen/f ew Not Available [facility] ([facility]) [address] [facility], [place], [address], 03/20/2024 06:37:11 03/18/20 24 03/19/2024 UA/M W/RFL X CULTU RE, ROUTI NE yeast QUEBRACHO TANNER Not Available [facility] ([facility]) [address] [facility], [place], [address], 03/20/2024 06:37:11 03/18/20 24 03/19/2024 UA/M W/RFL X CULTU RE, ROUTI NE trichomonas QUEBRACHO TANNER Not Available [facility] ([facility]) [address] [facility], [place], [address], 03/20/2024 06:37:11 03/18/20 24 03/19/2024 UA/M W/RFL X CULTU RE, ROUTI NE comment QUEBRACHO TANNER Not Available [facility] ([facility]) [address] [facility], [place], [address], 03/20/2024 06:37:11 03/18/20 24 03/19/2024 UA/M W/RFL X CULTU RE, ROUTI NE microscopic examination QUEBRACHO TANNER Not Available [facility] ([facility]) [address] [facility], [place], [address], 03/20/2024 06:37:11 03/18/20 24 03/19/2024 UA/M W/RFL X CULTU RE, ROUTI NE urinalysis reflex COMMEN T This speci men has refle xed to a Urine Cultu re. Not Available [facility] ([facility]) [address] [facility], [place], [address], 03/20/2024 06:37:11 03/18/2003/20/2024 UA/M W/RFL X CULTU RE, ROUTI NE urine culture, routine FINAL REPORT abnormal Not Available [facility] ([facility]) [address] [facility], [place], [address], 03/20/2024 06:37:11 03/18/20 24 03/20/2024 UA/M W/RFL X CULTU RE, ROUTI NE result 1 COMMEN T abnormal Beta hemol ytic Strep tococ cus, group B 50,00 0-100 ,000 colon y formi ng units per mL Penic illin and ampic illin are drugs of choic e for treat ment of beta- hemol ytic strep tococ arjun infec tions . Susce ptibi lity testi ng of penic illin s and other beta- lacta m agent s appro sonu by the FDA for treat ment of beta- hemol ytic strep tococ arjun infec tions need not be perfo rmed routi kadeem becau se nonsu scept ible isola aidan are extre jordan rare in any beta- hemol ytic strep tococ cus and have not been repor shala for Strep tococ cus pyoge savanah (grou p A). (CLSI ) Not Available [facility] ([facility]) [address] [place], [address], 03/20/2024 06:37:11 03/18/20 24 03/19/2024 LIPID PANEL cholesterol, total 133 mg/dL 100-19 9 normal Not Available [facility] ([facility]) [address] [place], [address], 03/20/2024 06:37:12 03/18/20 24 03/19/2024 LIPID PANEL triglyceride s 57 mg/dL 0-149 normal Not Available [facility] ([facility]) [address] [place], [address], 03/20/2024 06:37:12 03/18/20 24 03/19/2024 LIPID PANEL HDL cholesterol 67 mg/dL >39 normal Not Available [facility] ([facility]) [address] [place], [address], 03/20/2024 06:37:12 03/18/20 24 03/19/2024 LIPID PANEL VLDL cholesterol arjun 12 mg/dL 5-40 Not Available [facility] ([facility]) [address] [place], [address], 03/20/2024 06:37:12 03/18/20 24 03/19/2024 LIPID PANEL LDL chol calc ([facility]) 54 mg/dL 0-99 Not Available [facility] ([facility]) [address] [facility], [place], [address], 03/20/2024 06:37:12 03/18/20 24 03/19/2024 LIPID PANEL LDL calc comment: QUEBRACHO TANNER Not Available [facility] ([facility]) [address] [place], [address], 03/20/2024 06:37:12 06/06/19 25 06/07/2024 TSH+F REE T4 TSH 0.323 uIU/m L 0.450- 4.500 below low normal Not Available [facility] ([facility]) [address] [place], [address], 06/07/2024 07:37:44 06/06/19 25 06/07/2024 TSH+F REE T4 T4,free(dire ct) 1.36 NG/dL 0.82-1 .77 normal Not Available [facility] ([facility]) [address] [place], [address], 06/07/2024 07:37:44 06/06/19 25 06/07/2024 TRIIO DOTHY DORINDA E (T3), FREE triiodothyro nine (T3), free 2.3 pg/mL 2.0-4. 4 normal Not Available [facility] ([facility]) [address] [place], [address], 06/07/2024 07:37:44 08/26/19 23 08/24/2022 US, thyro id No observ ation record ed. [facility] [address], [place], [address], 01/26/2023 10:36:27 01/23/20 24 01/22/2024 MAMMO , scree renee, digit al, bilat eral No observ ation record ed. [facility] [address], [place], [address], 03/08/2024 13:34:04 08/08/19 25 08/06/2024 bone densi ty No observ ation record ed. [facility] [address], [address], 08/21/2024 07:55:04 Result Notes None recorded. Problems Name Problem SNOMED Code Status Onset Date Resolution Date Notes Provider Name and Address Organization Details Recorded Time Acute urinary tract infection 412823772 Active 2022 Hari Tristan MD [address], [place], [address], [facility] 3 11:36:49 Heel pain 3559104 Active 2022 Hari Tristan MD [address], [place], [address], [facility] 3 11:50:52 Hypothyroidism 87310505 Active 2022 Hari Tristan MD [address], [place], [address], [facility] 3 00:27:32 Problem Notes None recorded. Procedures Surgical History Date Name Laterality Status Provider Name and Address Organization Details Recorded Time 01/22/20 24 Date of Last Mammogram completed Doris Marks [facility] 06/10/2024 11:15:23 Tonsillectomy completed [facility] 03/01/2021 14:36:37 Tubal Ligation completed [facility] 03/01/2021 14:36:50 excision of cyst completed [facility] 03/01/2021 14:37:26 Colonoscopy completed [facility] 03/01/2021 14:46:37 Orthopedic Surgery completed Hari Tritsan MD [address], [place], [address], [place] [facility] 03/01/2021 15:36:33 Imaging Results Imaging Date Name Status LastModified by Organiz ation Details LastModified Time 08/24/2022 US, thyroid completed [facility] [address], [place], [address], 01/26/2023 10:36:27 01/22/2024 MAMMO, screening, digital, bilateral completed [facility] [address], [place], [address], 03/08/2024 13:34:04 08/06/2024 bone density completed [facility] [address] [facility] [address], [place], [address], 08/21/2024 07:55:04 Procedure Notes None recorded. Medical Equipment None Reported. Allergies Allergen ID Allergen Name Allergen Category Reaction Reaction Severity Criticality Documentation Date Start Date Code Code System Note Provider Name and Address Organization Details Recorded Time 47652 peanut allergeni c extract food,medi cation eye swelling Not available Not available 03/01/2021 87428 8 RxNorm itchy throa t, vomti ng Lola Leatherwo od null, [facility] 14:31:32 25826 soy environme nt,food,m edication eye swelling Not available Not available 03/01/2021 00729 UNK itchy throa t, vomti ng Lola Leatherwo od null, [facility] 14:31:44 77915 Bactrim medicatio n hives Not available Not available 03/01/2021 76077 9 RxNorm Lola Leatherwo od null, [facility] 14:31:57 43976 honey bee venom medicatio n Not available Not available Not available 03/01/2021 81590 7 RxNorm Hari Tristan MD [address], [place], [address], [place] [facility] 15:16:08 Medications Name Sig Start Date Stop Date Status Note LastModified by Organization Details LastModified Time Augmentin 875 mg-125 mg tablet Take 1 tablet every 12 hours by oral route. 06/10 completed Not Available Not Available Not Available levothyro xine 137 mcg tablet Take 1 tablet every day by oral route in the morning. 2024 active Not Available Not Available Not Avai lable azithromy becca 250 mg tablet TAKE 2 TABLETS (500 MG) BY ORAL ROUTE ONCE DAILY FOR 1 DAY THEN 1 TABLET (250 MG) BY ORAL ROUTE ONCE DAILY FOR 4 DAYS 07/31 completed Not Available Not Available Not Available phentermi ne 37.5 mg tablet Take 1 tablet every day by oral route in the morning. 2024 active Not Available Not Available Not Avai lable liothyron ine 5 mcg tablet Take 1 tablet every day by oral route. 07/26 completed -- disconti nue by Endo at [facility] Dr Rosamaria Salas Not Available Not Available Not Available Celebrex 200 mg capsule Take 1 capsule every day by oral route for 90 days. 2023 active Not Available Not Available Not Avai lable levothyro xine 125 mcg tablet 06/07 completed -- increase d to 137 mcg qAM. Not Available Not Available Not Available nitrofura ntoin macrocrys abhishek 100 mg capsule TAKE 1 CAPSULE BY MOUTH TWICE DAILY 06/10 completed Not Available Not Available Not Available levothyro xine 150 mcg tablet Take 1 tablet every day by oral route in the morning. 07/26 completed Endo at [facility] Dr Rosamaria Salas decrease it to 137 mcg qam Not Available Not Available Not Available monteluka st 10 mg tablet 03/29 completed Not Available Not Available Not Available methylpre dnisolone 4 mg tablets in a dose pack 07/26 completed Not Available Not Available Not Available albuterol sulfate HFA 90 mcg/actua tion aerosol inhaler 2 puffs up to 4 times a days as needed only; Must go to the [facility] if no relief after the 4th treatmen t. active Not Available Not Available No t Available celecoxib 100 mg capsule 01/26 completed Not Available Not Available Not Available cefdinir 300 mg capsule Take 1 capsule every 12 hours by oral route. 06/10 completed Not Available Not Available Not Available metformin ER 500 mg tablet,ex tended release 24 hr Take 1 tablet every 12 hours by oral route. 01/26 completed Not Available Not Available Not Available levothyro xine 112 mcg tablet 03/29 completed Not Available Not Available Not Available duloxetin e 30 mg capsule,d elayed release 1 pill daily 2024 active Not Available Not Available Not Avai lable duloxetin e 60 mg capsule,d elayed release Take 1 capsule every day by oral route. 06/10 completed -- pt wants to go back to 30 mg due to weight gain Not Available Not Available Not Available Mucinex 1,200 mg tablet, extended release Take 1 tablet every 12 hours by oral route. 01/26 completed Not Available Not Available Not Available Gemtesa 75 mg tablet Take 1 tablet every day by oral route. 07/26 completed Not Available Not Available Not Available Seglentis 44 mg-56 mg tablet Take 1 tablet 3 times a day by oral route. 07/26 completed Not Available Not Available Not Available Vitals Date Recorded Body height Body mass index (BMI) Body weight Respiratory rate Body temperature Heart rate Systolic blood pressure Diastolic blood pressure Provider Name and Address Organization Details Last Updated DateTime 3 154.94 cm 38.7 kg/m2 33735.4 4 g 16 /min 98.1 [degF] 76 /min 127 mm[Hg] 81 mm[Hg] [facility] 3 10:46:47 Date Recorded Body height Body mass index (BMI) Body weight Respiratory rate Body temperature Heart rate Systolic blood pressure Diastolic blood pressure Provider Name and Address Organization Details Last Updated DateTime 3 154.94 cm 33.3 kg/m2 94344.2 6 g 16 /min 97.5 [degF] 73 /min 115 mm[Hg] 75 mm[Hg] [facility] 3 09:12:54 Date Recorded Body height Heart rate Respiratory rate Body temperature Body mass index (BMI) Body weight Systolic blood pressure Diastolic blood pressure Provider Name and Address Organization Details Last Updated DateTime 4 154.94 cm 70 /min 16 /min 97.4 [degF] 35.3 kg/m2 69839.7 7 g 110 mm[Hg] 71 mm[Hg] [facility] 4 10:37:52 Date Recorded Body height Heart rate Respiratory rate Body temperature Body mass index (BMI) Body weight Systolic blood pressure Diastolic blood pressure Provider Name and Address Organization Details Last Updated DateTime 4 154.94 cm 82 /min 16 /min 97.6 [degF] 37.6 kg/m2 75898.8 8 g 127 mm[Hg] 72 mm[Hg] Monica [facility] 4 12:32:56 Date Recorded Body height Heart rate Respiratory rate Body temperature Body mass index (BMI) Body weight Systolic blood pressure Diastolic blood pressure Provider Name and Address Organization Details Last Updated DateTime 5 154.94 cm 68 /min 16 /min 97.6 [degF] 36.8 kg/m2 07145.5 1 g 103 mm[Hg] 69 mm[Hg] Doris Marks [facility] 5 11:14:33 Social History Question Answer Notes LastModified by Organizat ion Details LastModified Time Tobacco Smoking Status [facility] 14:33:30 Do You Have An Advance Directive? No [email or web address] Information not available 01/26/2023 What Is Your Level Of Alcohol Consumption? Occasional Once A Month [email or web address] Information not available 03/01/2021 If You Are , What Was Your Level Of Alcohol Consumption Prior To ? None [email or web address] Information not available 01/26/2023 What Is Your Level Of Caffeine Consumption? Occasional Information not available 01/26/2023 Are You Currently Employed? 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 06/10/2024 [email or web address] Information not available 06/10/2024 What Is Your Relationship Status? [email or web address] Information not available 01/26/2023 Do You Use Any Illicit Or Recreational Drugs? No [email or web address] Information not available 01/26/2023 Do You Or Have You Ever Used Any Other Forms Of Tobacco Or Nicotine? No [email or web address] Information not available 01/26/2023 Sex: Unknown Functional Status Question Answer Note LastModified by Organizat ion Details LastModified Time What is your exercise level? Occasional [email or web address] Information not available 01/26/2023 Mental Status None recorded. Family History Relationship Description Onset Age of this Age Resolved Age Notes LastModified by Organization Details LastModified Time Maternal Grandmother Heart disease (MVP) Not available 2020 15:15:22 Maternal Grandmother Family history of malignant neoplasm both GMs w/ breast cancer @ in their 60s w/ mets to bone Not available 03/01/2021 15:23:49 Brother Heart disease (MVP) Not available 2020 15:14:55 Brother Alcoholism [email or web address] Not availabl e 06/10/2024 10:55:02 Father Alcoholism [email or web address] Not available 06/10/2024 10:55:02 Father Malignant tumor of colon -- 1st dx'd at 64 y/o; recurr ed again 76 y/o & has colost alba bag now jbuske Not available 06/10/2024 10:55:02 Father Renal cell carcinoma -- dx'd at 77 y/o [email or web address] Not available 06/10/2024 10:55:02 Maternal Grandfather Family history of malignant neoplasm prosta te cancer dx'd in his late 70s; & has Alzhem iers Not available 03/01/2021 15:25:39 Maternal Grandfather Cerebrovascu lar accident -- dx'd in her 50s [email or web address] Not available 06/10/2024 10:55:02 Paternal Grandmother Family history of malignant neoplasm both GM w/ breast cancer @ in their 60s w/ mets to bone Not available 03/01/2021 15:23:34 Paternal Grandfather Family history of malignant neoplasm prosta te cancer dx'd in his late 70s Not available 03/01/2021 15:26:06 Paternal Grandfather Alzheimer's disease [email or web address] Not available 2024 10:55:02 Notes:-- no FH for DM or any CAD Medical History No medical history recorded. Gynecological History Statement/Question Response Date of Last Pap Smear Date of Last Mammogram 01/22/2024 Date of Last Colonoscopy Obstetrics History GPAL:G 3 P 3 0 0 0 Type Value Full Term 3 Total 3 Immunizations Vaccine Type Date Status Note Provider Nam e and Address Organization Details Recorded Time COVID-19, mRNA, LNP-S, PF, 100 mcg/0.5mL dose or 50 mcg/0.25mL dose 06/03/2020 completed Michelle Garsia patricia [facility] 01/26/2023 09:04:42 COVID-19, mRNA, LNP-S, PF, 100 mcg/0.5mL dose or 50 mcg/0.25mL dose 07/01/2020 completed Michelle Garsia patricia [facility] 01/26/2023 09:04:42 COVID-19, mRNA, LNP-S, PF, 100 mcg/0.5mL dose or 50 mcg/0.25mL dose 03/17/2021 completed Michelle Garsia patricia [facility] 01/26/2023 09:04:42 zoster recombinant 03/31/2021 completed Michelle Garsia patricia [facility] 01/26/2023 09:04:42 Tdap 03/31/2021 completed Juliana gomez [facility] 04/21/2021 12:18:33 Past Encounters Encounter ID Performer Location Encounter Start Date Encounter Closed Date Diagnosis/Indication Diagnosis SNOMED-CT Code Diagnosis ICD10 Code Diagnosis Note [id number] Hari Tristan MD [facility], [facility] [address] [place] [address] 03/01/2021 13:51:09 03/01/2021 16:01:14 Increased frequency of urination 393940124 R35.0 Dyspnea on exertion 6084 5006 R06.09 (at times when walking) -- has childhood asthma (did allergy shots 6 years when in high school) Fatigue 01758406 R53.83 (x 2 weeks) Indigestion 870867298 R1 0.13 Allergic rhinitis 624038 04 J30.9 Hypothyroidism 96605763 E03.9 -- seeing PA now Hyperlipid emia screening 908642566 Z13.220 Body mass index 30+ - obesity 693779432 Z68.38 -- pt's BMI today is 38.9 (ideal is between 20-25)-- will advise weight loss Hepatitis C screening 41 9427146 Z11.59 Active or passive immunization 349425333 Z23 -- pt does not want Flu shot as it made her sick each time she gets the Flu shot Screening for malignant neoplasm of colon 173173751 Z12.11 -- pt reported she had a normal screening colonoscop y w/ Dr Pierce Mcadams at 45 y/o (as she was concerned about various cancer in her family -- but no FH for Colon Cancer). 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 -- Takes care of mom with ALS, dad beat colon cancer twice and now w/ Kidney care Vasovagal syncope 864536 005 R55 (flat lined during Phlebotomy while in-patient for anaphylaxi s due to bee sting) -- evaluated around 2010 and pt declined pacemaker Asthma 414021564 J45.90 9 Menopausal symptom 10695 002 E89.41 (emotional ly labile) [id number] Hari Tristan MD [facility] [address] [place] [address] 03/29/2021 11:21:40 03/29/2021 13:23:50 Adult health examination 989101581 Z00.00 Dyspnea on exertion 6084 5006 R06.09 (at times when walking) -- has childhood asthma (did allergy shots 6 years when in high school) Increased frequency of urination 691050006 R35.0 -- not diabetic w/ A1c of 03/02/21-- normal UA on 03/02/21 Hypothyroidism 68102266 E03.9 -- recheck labs on 05/20/21 Indigestion 976751696 R1 0.13 Paresthesi a of lower extremity 513045383 R20.2 (feet on fire when she wakes up in the AM) -- normal B1, B6 & B12 on 03/02/21 Asthma 322284768 J45.90 9 -- Spirometry done on 03/01/21 Allergic rhinitis 180284 04 J30.9 Hyperlipid emia screening 811684066 Z13.220 -- excellent lipid panel on 03/02/21 Vasovagal syncope 019263 005 R55 (flat lined during Phlebotomy while in-patient for anaphylaxi s due to bee sting) -- evaluated around 2010 and pt declined pacemaker Mixed anxi ety and depressive disorder 745440722 F41.8 -- Takes care of mom with ALS, dad beat colon cancer twice and now w/ Kidney care Body mass index 30+ - obesity 210953311 Z68.38 -- will advise weight loss; pt gained 3 # since her last visit-- pt's BMI today is 39.5 (ideal is between 20-25) Hepatitis C screening 41 3863608 Z11.59 -- tested negative for Hep C on 03/02/21 Active or passive immunization 278592254 Z23 -- pt does not want Flu shot as it made her sick each time she gets the Flu shot Screening for malignant neoplasm of colon 658963882 Z12.11 -- pt reported she had a normal screening colonoscop y w/ Dr Pierce Mcadams at 45 y/o-- pt will need to get screening colonoscop y every 5 years since her dad has colon cancer Screening for malignant neoplasm of breast 853954941 Z12.31 -- pt reported she had a normal screening mammogram on 02/20/21 at [facility] at [facility] Screening for malignant neoplasm of cervix 999939778 Z12.4 Screening for osteoporosis 934632414 Z13.820 [id number] Hari Tristan MD [facility], [facility] [address] [place] [address] 04/21/2021 11:13:29 04/21/2021 12:36:57 Acute purulent bronchitis 039196651 J20.9 Body mass index 30+ - obesity 648177782 Z68.39 -- no side effects to Phentermin e.-- will advise weight loss; pt lost 5 # since her last visit-- pt's BMI today is 38.5 (ideal is between 20-25) [id number] Hari Tristan MD [facility] [address] [place] [address] 07/21/2021 10:10:15 07/21/2021 11:46:37 Overactive urinary bladder 817173548 N32.81 Body mass index 30+ - obesity 815054562 Z68.36 -- no side effects to Phentermin e.-- will advise weight loss; pt lost 9 # since her last visit-- pt's BMI today is 36.8(ideal is between 20-25) Urgent jennifer yarely to urinate 18538595 R39.15 -- not diabetic w/ A1c of 03/02/21-- normal UA on 03/02/[id number] Hari Tristan MD [facility] [address] [place] [address] 10/26/2021 11:24:21 10/26/2021 12:44:23 Pain of right hip joint 5352807709 58464 M25.551 (h/o of Rt hip surgery & was told she will eventually need Rt THR) -- around end of July 2021, pt cody her Rt hip when she tripped over a curb (w/o falling).- - check labs within 3 days. Body mass index 30+ - obesity 789644057 Z68.35 -- no side effects to Phentermin e & still losing weight-- will advise weight loss; pt lost 9 # since her last visit-- pt's BMI today is 36.8(ideal is between 20-25) Hypothyroidism 28573352 E03.9 -- recheck labs on 05/20/[id number] Hari Tristan MD [facility] [employer] [address] [place] [address] 01/26/2022 11:52:00 01/26/2022 13:11:49 Pain of right hip joint 5481761666 31918 M25.551 (h/o of Rt hip surgery & was told she will eventually need Rt THR) -- around end of July 2021, pt cody her Rt hip when she tripped over a curb (w/o falling).- - pt has appt w/ Ortho Dr Jason Oden on 03/22/22 Hypothyroidism 25532439 E03.9 -- recheck labs on 05/20/22 Body mass index 30+ - obesity 427498232 Z68.35 -- no side effects to Phentermin e-- 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 and does not want to be on a controlled substance- - pt's BMI today is 36.1(ideal is between 20-25) Acute puru lent bronchitis 336943445 J20.9 [id number] Hari Tristan MD [facility] [address] [place] [address] 07/26/2022 10:16:19 07/26/2022 11:53:41 Acute urinary tract infection 281485156 N39.0 Hypothyroidism 67172687 E03.9 -- recheck labs on 05/20/22 Body mass index 30+ - obesity 806128525 Z68.35 -- no side effects to Phentermin e-- 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 and does not want to be on a controlled substance- - pt's BMI today is 36.1(ideal is between 20-25) Heel pain 3860862 M79.67 1 (right medial heel) [id number] Hari Tristan MD [facility] [address] [place] [address] 01/26/2023 09:04:29 01/26/2023 10:44:45 Adult health examination 268542645 Z00.00 Hypothyroidism 03679339 E03.9 -- recheck labs on 05/20/22 Body mass index 30+ - obesity 363642115 Z68.39 -- no side effects to Phentermin e-- 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 and does not want to be on a controlled substance- - pt's BMI today is 33.3 (ideal is between 20-25) Family his tory of cancer of colon 764276752 Z80.0 Diabetes m ellitus screening 390822699 Z13.1 Hepatitis C screening 41 2984385 Z11.59 -- tested negative for Hep C on 03/02/21 HIV screening 304395920 Z11.4 Active or passive immunization 438909005 Z23 -- pt does not want Flu shot as it made her sick each time she gets the Flu shot Screening for malignant neoplasm of colon 814643665 Z12.11 -- pt reported she had a normal screening colonoscop y w/ Dr Pierce Mcadams at 45 y/o-- pt will need to get screening colonoscop y every 5 years since her dad has colon cancer Screening for malignant neoplasm of breast 880735782 Z12.31 -- pt reported she had a normal screening mammogram on 02/20/21 at [facility] at [facility] Gynecologi c examination 95320763 Z01.419 [id number] Hari Tristan MD [facility], [facility] [address] [place] [address] 07/27/2023 10:24:14 07/27/2023 12:37:38 Hypothyroidism 33107826 E03.9 -- currently managed by Endo at [facility] Dr Faraz Salas Body mass index 30+ - obesity 434903854 Z68.35 -- no side effects to Phentermin e-- 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 and does not want to be on a controlled substance Informed pt that Zepbound/W egovy is related to a class of meds called GLP -1There are risks associated w/ the GLP class, and the risks are: 1) pancreatit is (you must stop Zepbound, if you experience any abdominal pain/disco mfort); and2) risk of developmen t of thyroid cancer3) risk of stomach or intestinal paralysis4 ) risk of Depression Therefore do not use Zepbound/W egovy if you have previous or current history of pancreatit is; & do not use Zepbound/W egovy if you have any family history of thyroid cancer.-- pt's BMI today is 35.3 (ideal is between 20-25) Family his tory of cancer of colon 655735628 Z80.0 -- Gastroente rologist Dr Renzo Rahman wants pt to repeat colonoscop y 5 years from 05/18/23 Diabetes m noelleitus screening 604427776 Z13.1 Hepatitis C screening 41 5556562 Z11.59 -- tested negative for Hep C on 03/02/21 HIV screening 303570524 Z11.4 CDC recommends that everyone between the ages of 13 and 64 get tested for HIV at least once as part of routine health care. Active or passive immunization 024151238 Z23 -- pt does not want Flu shot as it made her sick each time she gets the Flu shot Screening for malignant neoplasm of colon 697131547 Z12.11 -- Gastroente rologist Dr Renzo Rahman wants pt to repeat colonoscop y 5 years from 05/18/23 Screening for malignant neoplasm of breast 430318616 Z12.31 -- pt reported she had a normal screening [facility] Gynecologi c examination 11483103 Z01.419 Screening for osteoporosis 018762101 Z13.820 Pain of mu ltiple joints 70255351 M25.50 -- hands, knees and ankles [id number] Hari Tristan MD [facility], [facility] [address] [place] [address] 03/08/2024 11:35:15 03/08/2024 13:34:23 Tear of meniscus of knee 466986080 S83.206A S83.206D -- saw Ortho Dr Mario Johnston and he ordered MRI which showed mensical tear & severe OA & he recommends Rt TKR Osteoarthritis 434594839 M19.90 Hyperlipidemia 05211866 E78.5 (reported by pt)-- avoid Cheese (cheese on burgers, Pizza, lasagna, Gio, Parmesan), -- you will also need to limit egg yolks to 2 yolks a week (but as many egg whites he wants).-- Avoid Jerez,-- trim off fatty rubbery meat before consuming, -- avoid butter & Margarine, -- No whole milk or 2% milk (but 1%, 1/2% & fat free milk is fine). 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 and does not want to be on a controlled substance- - lost weight with Mediterran cruzito diet Osteoarthritis 315803604 M19.90 Hypothyroidism 60926615 E03.9 -- currently managed by Endo at [facility] Dr Faraz Salas Screening for cardiovascular system disease 519500094 Z13.6 Current ASCVD risk calculatio n is 0.5% (06/10/24) Active or passive immunization 218733668 Z23 -- pt does not want Flu shot as it made her sick each time she gets the Flu shot Closed fra cture of fifth metatarsal bone 59828888 S92.351D -- broke it in Apr 2024; currently seeing Traffic Or System Dispatcher GERARD Vides on [address] ; phone ; Fax # Screening for osteoporosis 501665114 Z13.820 Hepatitis C screening 41 5348074 Z11.59 -- tested negative for Hep C on 03/02/21 HIV screening 642241134 Z11.4 -- tested negative for HIV on 12/07/23 Screening for malignant neoplasm of colon 828902509 Z12.11 -- Gastroente rologist Dr Renzo Rahman wants pt to repeat colonoscop y 5 years from 05/18/23 Screening for malignant neoplasm of breast 731193733 Z12.31 -- normal screening mammogram done 01/22/24 at [facility] at [facility] Gynecologi c examination 86269855 Z01.419 -- pt just saw [employer] Dr Kwesi Johnson (around Dec 2023) 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 Health Concerns Section Related Observation LastModified by Organization Detai ls LastModified Time None Recorded Concern Status LastModified by Organization Details LastModified Time None Recorded Advance Directives Directive N: Payers Encounter Date Sequence Insurance Name Policy Number Policy Grewal Covered Member ID Grewal Member ID Guarantor Name 07/26/2022 1 [facility] [id number] Heidy Kelseyolaisen [id number] Heidy Nikolaisen 01/26/2023 1 [facility] [id number] Heidy Nikolaisen [id number] Heidy Nikolaisen 07/27/2023 1 [facility] [id number] Heidy Nikolaisen [id number] Heidy Nikolaisen 03/08/2024 1 [facility] [id number] Heidy Nikolaisen [id number] Heidy Nikolaisen 06/10/2024 1 [facility] [id number] Heidy Kelseyolaisen [id number] Heidy Kelseyolaisen Notes Date Note Type Note Provider Name and Address Organization Details Recorded Time 07/26/2022 text/html Pt p/w bilateral lower flank aches, and Rt heel pain. Pt also requesting Armor thyroid as it worked better for her. She has increased her appetite a lot since on Metformin. Pt feels well and has no c/o. Pt has no new sx and no increasing sx. Patient denies any jaw or neck discomfort, left arm pain/left arm discomfort, chest discomfort/pain, diaphoresis, breathing symptoms/chest tightness, indigestion sx, n/v, any angina equivalent symptoms, etc. Hari Tristan MD [address] [address], [place], [address], [facility] 07/26/2022 11:54:36 01/26/2023 text/html Pt comes in for f/u of Hypothyroidism, and weight management. Pt is also due for annual PE. Pt feels well and has no c/o. Pt has no new sx and no increasing sx. Patient denies any jaw or neck discomfort, left arm pain/left arm discomfort, chest discomfort/pain, diaphoresis, breathing symptoms/chest tightness, indigestion sx, n/v, any angina equivalent symptoms, etc. Hari Tristan MD [address], [place], [address], [facility] 01/26/2023 10:42:06 07/27/2023 text/html Pt comes in for f/u of multiple joint pain, hypothyroidism, and weight. She currently under the care of [employer] Dr Stephanie Salas for her Thyroid. She just had '8 test tubes of blood' draw for Dr Salas.Pt has increased weight recently due to stress (mom & dad moved in), pt would like to consider Ozempic. Pt feels well and has no other c/o. Pt has no other new sx and no increasing sx. Patient denies any jaw or neck discomfort, left arm pain/left arm discomfort, chest discomfort/pain, diaphoresis, breathing symptoms/chest tightness, indigestion sx, n/v, any angina equivalent symptoms, etc. Hari Tristan MD [address], [place], [address], [facility] 07/27/2023 12:38:57 03/08/2024 text/html Pt comes in for weight management f/u (was over 200 # but started on Phentermine 3 days ago, and now she is 199#). No side effects. Pt feels well and has no c/o. Pt has no new sx and no increasing sx. Patient denies any jaw or neck discomfort, left arm pain/left arm discomfort, chest discomfort/pain, diaphoresis, breathing symptoms/chest tightness, indigestion sx, n/v, any angina equivalent symptoms, etc. Hari Tristan MD [address], [place], [address], [facility] 03/08/2024 13:34:11 06/10/2024 text/html Pt comes in for f/u of Hypothyroidism, OA, Food getting stuck in esophagus occasionally, and weight monitoring. Pt feels well and has no c/o. Pt has no new sx and no increasing sx. Patient denies any jaw or neck discomfort, left arm pain/left arm discomfort, chest discomfort/pain, diaphoresis, breathing symptoms/chest tightness, indigestion sx, n/v, any angina equivalent symptoms, etc. Hari Tristan MD [address] [place] [address], [place], [address], [facility] 06/10/2024 12:45:46 OBGyn Episode No OBEpisode recorded.
--- OUTSIDE RECORDS SUMMARY | 2024-09-12 01:15 | XMS_ITS | Referral Summary ---
Author Organization [facility] Address [address] [place] [address] Care Team Providers Care Resident Care Provider Name Role Phone Hari Tristan MD Primary Care Provider [phone] Aurea Johnson MD Unavailable [phone] Encounters Date Type Department Care Team Description 08/06/2024 8:00 AM CDT - 08/06/2024 11:59 PM CDT Hospital Encounter [facility] Medical Office Bldg 1 Breast [facility] [address] [place] [address] Encounter for screening for osteoporosis Discharge Disposition: Discharge to home or self care from Last 3 Months Allergies Active Allergy Reactions Criticality Noted Date Comments Bee Pollen Hives,Itching,Swelling Medium 02/23/2023 Dog Dander Eye irritation,Itching,Rash,Snee zing Medium 02/23/2023 Peanut Swelling,Eye irritation Medium 03/21/2022 Soy Swelling Medium 03/21/2022 Sulfamethoxazole-Trimetho prim Hives,Rash,Unknown Medium 03/03/2011 Venom-Honey Bee Other (See comments) Low 03/15/2023 Medications levothyroxine (SYNTHROID) 137 mcg tablet Take 1 tablet (137 mcg total) by mouth relay associate before breakfast Active phentermine (ADIPEX-P) 37.5 mg tablet 0 4 Active estradioL (VAGIFEM) 10 mcg tablet Insert 1 tablet (10 mcg total) into the vagina 2 (two) times a week Nightly x14 nights then 2 nights per week 18 tablet 3 07/15/202 4 11/20/19 Active Active Problems Problem Noted Date Diagnosed Date Hypothyroidism 01/10/2023 Right wrist pain 09/19/2022 Arthritis of carpometacarpal (CMC) joint of righ t thumb 09/19/2022 Acute urinary tract infection 07/26/2022 Heel pain 07/26/2022 Immunizations Immunization Administration Dates Next Due Tdap 03/29/2021,03/01/2021,08/07/2019 ZOSTER Recombinant 03/29/2021,03/01/2021 Social History Tobacco Use Types Packs/Day Years Used Date Smoking Tobacco: Never Smokeless Tobacco: Never Tobacco Cessation:Counseling Given: Not Answered AUDIT-C Answer Date Recorded Q1: How often do you have a drink containing alc ohol? Monthly or less 11/04/2022 Q2: How many drinks containi ng alcohol do you have on a typical day when you are drinking? 1 or 2 11/04/2022 Q3: How often do you have si x or more drinks on one occasion? 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 Not on file Not on file Not o n file Last Filed Vital Signs Vital Sign Reading Time Taken Comments Blood Pressure 128/70 11/17/2023 8:59 AM CDT Pulse - - Temperature - - Respiratory Rate - - Oxygen Saturation - - Inhaled Oxygen Concentration - - Weight 83.5 kg (184 lb) 04/02/2024 9:15 AM DRAW FURNACE TENDER Height 154.9 cm (5' 1 ) 04/02/2024 9:15 AM DRAW FURNACE TENDER Body Mass Index 34.77 04/02/2024 9:15 AM DRAW FURNACE TENDER Plan of Treatment Not on file Procedures Procedure Name Priority Date/Time Associated Diagnosis Comments DEXA AXIAL SKELETON BONE DENSITY 1 OR MORE SITES Schedule Routine, Read Routine (OP Routine) 08/06/2024 8:18 AM CDT Encounter for screening for osteoporosis SCREENING MAMMOGRAM BILATERAL W NELLIE Schedule Routine, Read Routine (OP Routine) 11/15/2022 3:43 PM CDT Encounter for screening mammogram for malignant neoplasm of breast PAP AND HIGH RISK HPV, REFLEX TO GENOTYPING Routine 11/04/2022 1:31 PM CDT Screening for malignant neoplasm of the cervix from Last 3 Months or Most Recently Relevant to Health Maintenance Results * Dexa Axial Skeleton Bone Density 1 or 2 Site (08/06/2024 8:18 AM CDT) Anatomical Region Laterality Modality Body N/A Mammography 08/07/2024 5:11 AM CDT Narrative 08/07/2024 5:13 AM CDT EXAM DESCRIPTION: DEXA AXIAL SKELETON BONE DENSITY 1 OR MORE SITES REASON FOR STUDY: 53 y/o year old F with given history of: screening osteoporosis 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 CLINICAL INFORMATION: Current height: 61.5 inches Maximum height: 62 inches Weight: 203 pounds Risk factors: Postmenopausal COMPARISON: None available FINDINGS: AP LUMBAR SPINE L1-L4: Total BMD is 1.062 g/cm2 T-score is 0.1 LEFT HIP: Total BMD is 1.059 g/cm2 T-score is 1.0 Femoral neck BMD is 0.877 g/cm2 T-score is 0.3 FRAX: FRAX not reported due to T-scores of hip, femoral neck and/or spine being at or above -1.0 (Normal). IMPRESSION: Normal bone mass. REFERENCE: Bone mineral density: T-Score: Normal (T-score above or = -1.0) Low bone mass (T-score between -1.0 and -2.5) replaces the previously used term osteopenia Osteoporosis (T-score = or below -2.5) Z-Score: Within the expected range for age (Z-score above -2.0) Below the expected range for age (Z-score is -2.0 or below) Please see below follow up recommendations. Medical evaluation for secondary causes of low bone mineral density may be appropriate. FRAX is a World Health Organization validated fracture risk assessment tool that calculates a person's 10 year probability of a major osteoporosis related fracture and hip fracture. According to the National Osteoporosis Foundation guidelines, postmenopausal women and men age 50 or older with low bone mass and a 10 year probability of a major osteoporosis related fracture = or greater than 20% or a 10 year probability of a hip fracture = or greater than 3% should be considered for pharmacological treatment for the prevention of osteoporosis. For further information, including treatment recommendations, please refer to the 2019 ISCD Official Positions (http://www.iscd.org) and the NOF's Clinician's Guide to Prevention and Treatment of Osteoporosis (http://www.nof.org/professionals/clinical-guidelines) THIS IS AN ELECTRONICALLY VERIFIED FINAL REPORT 08/07/2024 5:13 AM - Electronically signed by Chandler Sherman M.D. MF: QUYEN Report ID: [id number] Reading Location: [address] Note Chandler Sherman MD - 08/07/2024 EXAM DESCRIPTION: DEXA AXIAL SKELETON BONE DENSITY 1 OR MORE SITES REASON FOR STUDY: 53 y/o year old F with given history of: screening osteoporosis Windows Phone Developer/Model: [employer] A (S/N [id number]) Facility LSC value of 0.022 for the AP spine, 0.027 for the femur, and0.023 for the forearm. CLINICAL INFORMATION: Current height: 61.5 inches Maximum height: 62 inches Weight: 203 pounds Risk factors: Postmenopausal COMPARISON: None available FINDINGS: AP LUMBAR SPINE L1-L4: Total BMD is 1.062 g/cm2 T-score is 0.1 LEFT HIP: Total BMD is 1.059 g/cm2 T-score is 1.0 Femoral neck BMD is 0.877 g/cm2 T-score is 0.3 FRAX: FRAX not reported due to T-scores of hip, femoral neck and/or spine beingat or above -1.0 (Normal). IMPRESSION: Normal bone mass. REFERENCE: Bone mineral density: T-Score: Normal (T-score above or = -1.0) Low bone mass (T-score between -1.0 and -2.5) replaces thepreviously used term osteopenia Osteoporosis (T-score = or below -2.5) Z-Score: Within the expected range for age (Z-score above -2.0) Below the expected range for age (Z-score is -2.0 or below) Please see below follow up recommendations. Medical evaluation forsecondary causes of low bone mineral density may be appropriate. FRAX is a World Health Organization validated fracture risk assessmenttool that calculates a person's 10 year probability of a major osteoporosisrelated fracture and hip fracture. According to the National OsteoporosisFoundation guidelines, postmenopausal women and men age 50 or older with low bonemass and a 10 year probability of a major osteoporosis related fracture = or greater than 20% or a 10 year probability of a hip fracture = or greaterthan 3% should be considered for pharmacological treatment for the preventionof osteoporosis. For further information, including treatment recommendations, please referto the 2019 ISCD Official Positions (http://www.iscd.org) and the NOF's Clinician's Guide to Prevention and Treatment of Osteoporosis (http://www.nof.org/professionals/clinical-guidelines) THIS IS AN ELECTRONICALLY VERIFIED FINAL REPORT 08/07/2024 5:13 AM - Electronically signed by Chandler Sherman M.D. MF: QUYEN Report ID: [id number] Reading Location: [place] [address] us Hari Tristan MD IMG DXA PROCEDURES Final Result * Screening Mammogram Bilateral W Nellie (11/15/2022 3:43 PM CDT) Anatomical Region Laterality Modality Breast Bilateral Mammography us Aurea Johnson MD IMG MAMMO PROCEDURES Linda l Result * (ABNORMAL) Pap and High Risk HPV, reflex to Genotyping (11/04/2022 1:31 PM CDT) Clinical indication Comment(A) [facility] - 01 Comment: EPITHELIAL CELL ABNORMALITY. ATYPICAL SQUAMOUS CELLS OF UNDETERMINED SIGNIFICANCE (ASC-US). Recommendation Comment(A) [facility] - 01 Comment:Suggest follow up as clinically appropriate. Specimen adequacy: Comment [facility] - 01 Comment: Satisfactory for evaluation. Endocervical and/or squamous metaplastic cells (endocervical component) are present. Clinician provided ICD10 Comment [facility] - Comment:Z12.4 Performed by Comment [facility] - 01 Comment:Deirdre Rhodes, Raspberry Checker (ASCP) Electronically signed by Comment [facility] - 01 Comment:Aimee Dang MD, Pa thologist . . [facility] - Pathologist provided ICD10 Comment [facility] - Comment:R87.610 Note: Comment [facility] - 01 Comment: The Pap smear is a screening test designed to aid in the detection of premalignant and malignant conditions of the uterine cervix. It is not a diagnostic procedure and should not be used as the sole means of detecting cervical cancer. Both false-positive and false-negative reports do occur. Test methodology Comment [facility] - Comment: This liquid based ThinPrep(R) pap test was screened with the use of an image guided system. HPV Aptima Negative Negative [facility] 02 Comment: This nucleic acid amplification test detects fourteen high-risk HPV types (16,18,31,33,35,39,45,51,52,56,58,59,66,68) without differentiation. HPV Genotype Reflex Comment [facility] - Comment:Criteria not met, HP V Genotype not performed. Thin prep 11/04/2022 1:31 PM CDT 11/04/2022 Narrative [facility] - 11/11/2022 4:11 PM CDT Performed at: - [address] [id number] Inside Sales Account Executive: Blank Soria MD, Phone: [phone] Performed at: 02 - [facility] [id number] Inside Sales Account Executive: Blank Soria MD, Phone: [phone] Specimen Comment: Source.............Cervix;Endocervix Specimen Comment: No. of containers..01 ThinPrep Vial us Aurea Johnson MD LAB CYTOLOGY ORDERABLES F inal Result [facility] 02 from Last 3 Months or Most Recently Relevant to Health Maintenance [place] [address] CIGNA CIGNA CIG Care Teams Resident Care Provider Relationship Specialty Start Date End Date Hari Tristan MD [address] [place] [address] PCP - General Internal Medicine 09/08/22 Aurea Johnson MD [address] [place] [address] Electric Golf Cart Repairer Obstetrics and Gynecology 11/02/22
--- OUTSIDE RECORDS SUMMARY | 2024-09-12 01:15 | XMS_ITS | Encounter Summary ---
Author Organization [facility] Address [address] [place] [address] Care Team Providers Care Gunsmith Apprentice Name Role Phone Imani, External Provider Primary Care Provider Jeremías ugalde Encounter Details Date Type Department Care Team (Latest Contact Info) Description 09/16/1999 Inpatient Historical HIS PATIENT IN A BED Kassy Donald MD NO ADDRESS ON FILE Other placental conditions affecting management of mother, delivered (Primary Dx) Social History Tobacco Use Types Packs/Day Years Used Date Smoking Tobacco: Never Assessed Comments Unknown Sex and Gender Information Value Date Recorded Sex Assigned at Not on file Legal 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
--- OUTSIDE RECORDS SUMMARY | 2024-09-12 01:15 | XMS_ITS | Clinical Summary ---
Author Organization [facility] [place] [address] Care Team Providers Care Product Development Name Role Phone Hari Tristan MD Primary Care Provider [phone] Aurea Johnson MD Unavailable [phone] Allergies Active Allergy Reactions Criticality Noted Date Comments Bee Pollen Hives,Itching,Swelling Medium 02/23/2023 Dog Dander Eye irritation,Itching,Rash,Snee zing Medium 02/23/2023 Peanut Swelling,Eye irritation Medium 03/21/2022 Soy Swelling Medium 03/21/2022 Sulfamethoxazole-Trimetho prim Hives,Rash,Unknown Medium 03/03/2011 Venom-Honey Bee Other (See comments) Low 03/15/2023 Medications levothyroxine (SYNTHROID) 137 mcg tablet Take 1 tablet (137 mcg total) by 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 cluster 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 operator before breakfast Active phentermine (ADIPEX-P) 37.5 mg tablet 0 4 Active estradioL (VAGIFEM) 10 mcg tablet Insert 1 tablet (10 mcg total) into the vagina 2 (two) times a week Nightly x14 nights then 2 nights per week 18 tablet 3 4 11/20/19 25 Active Active Problems Problem Noted Date Diagnosed Date Hypothyroidism 01/10/2023 Right wrist pain 09/19/2022 Arthritis of carpometacarpal (CMC) joint of righ t thumb 09/19/2022 Acute urinary tract infection 07/26/2022 Heel pain 07/26/2022 Encounters Date Type Department Care Team Description 08/06/2024 8:00 AM CDT - 08/06/2024 11:59 PM CDT Hospital Encounter [facility] Medical Office Bldg 1 Breast [facility] [address] [place] [address] Encounter for screening for osteoporosis Discharge Disposition: Discharge to home or self care from Last 3 Months Immunizations Immunization Administration Dates Next Due Tdap 03/29/2021,03/01/2021,08/07/2019 ZOSTER Recombinant 03/29/2021,03/01/2021 Surgical History Surgery Date Site/Laterality Comments HIP SURGERY 05/08/2010 - 05/07/2011 Right GANGLION CYST EXCISION 05/08/1992 - 05/07/1993 wrist ENDOMETRIAL ABLATION W/ NOVASURE 05/08/2015 - 05/07/2016 TUBAL LIGATION 05/08/2002 - 05/07/2003 TONSILLECTOMY 05/08/1994 - 05/07/1995 Medical History Medical History Date Comments Thyroid disease Asthma Family History Medical History Relation Name Comments Colon cancer Father Hypertension Father Kidney cancer Father Breast cancer Maternal Grandmother dx >50 's ALS Mother Arthritis Mother Heart disease Mother Breast cancer Paternal Grandmother dx > 5 0's Relation Name Status Comments Father Maternal Grandmother Mother Paternal Grandmother Social History Tobacco Use Types Packs/Day Years [...] on file 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 Gender Identity Not on file Sexual Orientation Not on file Occupation Industry Job Start Date Job End Date retired [employer] Not on file Not on file Not o n file Obstetrics History Para Term AB IAB SAB Ectopic Multiple Livin g Live Births 3 0 0 0 0 0 0 0 0 3 3 Date Outcome GA Total Labor Labor/2nd/3rd Weight Sex Type Anes PTL Andree A1 A5 Name Clin 1993 3.033 kg (6 lb 11 oz) M Vaginal Living 1999 3.175 kg (7 lb) F Vaginal Living 2001 3.345 kg (7 lb 6 oz) F Vaginal Living Last Filed Vital Signs Vital Sign Reading Time Taken Comments Blood Pressure 128/70 11/17/2023 8:59 AM CDT Pulse - - Temperature - - Respiratory Rate - - Oxygen Saturation - - Inhaled Oxygen Concentration - - Weight 83.5 kg (184 lb) 04/02/2024 9:15 AM 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 Height 154.9 cm (5' 1 ) 04/02/2024 9:15 AM 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 Body Mass Index 34.77 04/02/2024 9:15 AM 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 Plan of Treatment Health Maintenance Due Date Last Done Comments Colon Cancer Screening-Colonoscopy 1970 Depression Screening 1970 Hepatitis C Screening 1970 Hepatitis B Screening 1988 Cervical Cancer Screening 11/05/2023 11/04/2022 Covid-19 Vaccine ( season) 2024 03/17/2021, 07/01/2020, 06/03/2020 Regular Well Visit/Exam 18-64 11/16/2024 11/17/2023, 11/04/2022 Influenza Vaccine (Season Ended) 2025 Breast Cancer Screening-Mammogram 01/21/2025 01/22/2024, 01/22/2024, 11/15/2022, Additional history exists DTaP/Tdap/Td Vaccine (4 - Td or Tdap) 03/29/2031 03/29/2021, 03/01/2021, 08/07/2019 Zoster Vaccine Completed 03/29/2021, 03/01/2021 Pneumococcal vaccine <65 Aged Out No longer eligible based on patient's age to complete this topic Procedures Procedure Name Priority Date/Time Associated Diagnosis [...] F with given history of: 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 MF: QUYEN Report ID: [id number] Reading Location: [place] [address] Hari Tristan MD IMG DXA PROCEDURES Final Result * Screening Mammogram Bilateral W Nellie (11/15/2022 3:43 PM CDT) Anatomical Region Laterality Modality Breast Bilateral Mammography Aurea Johnson MD G MAMMO PROCEDURES Linda l Result * (ABNORMAL) [...] by Comment [facility] - 01 Comment:Deirdre Rhodes, Appliance Repairer (ASCP) Electronically signed by Comment [facility] - Comment:Aimee Dang MD, Pa thologist . . [...] 11/11/2022 4:11 PM CDT Performed at: - [facility] [id number] Financial Services Internship: Blank Soria MD, Phone: [phone] Performed at: 02 - [facility] [id number] Financial Services Internship: Blank Soria MD, Phone: [phone] Specimen Comment: Source.............Cervix;Endocervix Specimen Comment: No. of containers..01 ThinPrep Vial us Aurea Johnson MD LAB CYTOLOGY ORDERABLES F inal Result [facility] 02 from Last 3 Months or Most Recently Relevant to Health Maintenance [place] [id number] Care Teams Product Development Relationship Specialty Start Date End Date Hari Tristan MD [address] [place] [address] [address] [place] [address] PCP - General Internal Medicine 09/08/22 Aurea Johnson MD [address] [place] [address] Metallic Yarn Slitting Machine Operator Obstetrics and Gynecology 11/02/22
--- OUTSIDE RECORDS SUMMARY | 2024-09-12 01:15 | XMS_ITS | Encounter Summary ---
Author Organization [facility] Address [address] [place] [address] Care Team Providers Care Account Development Specialist Name Role Phone [facility], External Provider Primary Care Provider Jeremías ugalde Encounter Details Date Type Department Care Team (Latest Contact Info) Description 09/06/1999 Outpatient Historical HIS OBSERVATION BED 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
[2024-09-12 08:23] VITALS: BP 119/73; PULSE 79; RESP 18; TEMP 36.1; O2SAT 99; BMI 39.1
[2024-09-12] MEDS: LACTATED RINGERS 1,000 ML 150 ML IV CONT (08:32)
--- NOTE | 2024-09-12 08:51 | P.PNAN_ITS ---
Anes - Initial Pre Proc Eval Procedure: Operation Date: 09/12/24 10:00 Proposed Procedures p Esophagogastroduodenoscopy - Renzo Moreira MD Date/Time: 09/12/24 08:51 Surgeon: Renzo Moreira MD Pre Op Diagnosis: Dysphagia Patient Data Age: 54 Gender: F Height: 1.55 m Weight: 94 kg Last Vital Signs Temp 97 F L 09/12/24 08:23 Pulse 79 09/12/24 08:23 Resp 18 09/12/24 08:23 BP 119/73 09/12/24 08:23 Pulse Ox 99 09/12/24 08:23 O2 Del Method Room Air 09/12/24 08:23 Allergies Allergy/AdvReac Type Severity Reaction Status Date / Time sulfamethoxazole (From Allergy Rash Verified 09/12/24 08:23 Bactrim) trimethoprim (From Bactrim) Allergy Rash Verified 09/12/24 08:23 Home Medications ?Medication ?Instructions ?Recorded ?Confirmed ?Type levothyroxine 137 mcg tablet 137 mcg PO DAILY 06/18/24 09/12/24 History (Synthroid) Patient hx anesthesia problems: none Family hx anesthesia problems: none Results Review: All pre-operative results and documents have been reviewed as part of the pre- operative evaluation. [facility] Past Medical History Medical History Family history of colon cancer Social History Social History Smoking status: Never smoker Alcohol intake: never Alcohol use details: Rarely Substance use: never Substance use type: does not use Living arrangements: with family Additional living arrangements comments: with sp Spiritual care concerns: No Anes - Eval Final PreProcedure Day of Procedure 09/12/24 08:51 Patient weight: obese Lungs: normal air movement Airway: Mallampati scale class II Neurological: alert and oriented Last oral intake: >/= 8 hours ASA classification: II Emergent: no Anesthetic plan: proceed Anesthesia type and monitoring: general GIVS and standard monitoring Results Review: All pre-operative results and documents have been reviewed as part of the pre- operative evaluation. Hypothyroidism, dysphagia. Informed Consent: The patient's anesthetic plan and its attendant risks and benefits were discussed with the patient/family/POA. Questions were solicited and answers provided to the satisfaction of the patient/family/POA.
--- NOTE | 2024-09-12 09:24 | PM.HPGS ---
History of Present Illness History of Present Illness Consent: Risks, benefits, and alternatives have been discussed and questions answered. Patient agrees to proceed with procedure. Chief complaint: Dysphagia Narrative: Heidy Crandall is a 54 year old female with dysphagia to certain food, her son has EoE, she is not taking ppi. Review of Systems Review of Systems: All systems reviewed & are unremarkable except as noted in HPI and below PMFSH Past Medical History Medical History Family history of colon cancer Social History Social History Smoking status: Never smoker Alcohol intake: never Alcohol use details: Rarely Substance use: never Substance use type: does not use Living arrangements: with family Additional living arrangements comments: with sp Spiritual care concerns: No Meds Home Medications and Allergies Home Medications ?Medication ?Instructions ?Recorded ?Confirmed ?Type levothyroxine 137 mcg tablet 137 mcg PO DAILY 06/18/24 09/12/24 History (Synthroid) Allergies Allergy/AdvReac Type Severity Reaction Status Date / Time sulfamethoxazole (From Allergy Rash Verified 09/12/24 08:23 Bactrim) trimethoprim (From Bactrim) Allergy Rash Verified 09/12/24 08:23 Vital Signs Vital Signs - 24 hr 09/12/24 08:23 Temperature 97 F L Pulse Rate 79 Respiratory Rate 18 Blood Pressure 119/73 Pulse Oximetry 99 Oxygen Delivery Room Air Exam Const: General: comfortable and no acute distress HENMT: Face/Nose/Sinus: Normal nares present Eyes: General: appearance normal, both eyes and all related structures Neck: Neck: no JVD Resp: Auscultation: clear to auscultation bilaterally Cardio: Rate: regular rate Rhythm: regular rhythm GI: Inspection: non-distended GI Palp: Yes Soft to palpation Skin: General skin exam: normal color Neuro: General: gait normal Speech: normal speech Extrem: General: normal to inspection Psych: Mental Status: mental status grossly normal Assessment and Plan Assessment and plan (1) Dysphagia: Code(s): R13.10 - Dysphagia, unspecified Status: Acute Assessment and Plan: egd with bx
[2024-09-12] MEDS: BENZOCAINE (*SP) 60 ML SPRAY CAN (HURRICAINE) 1 SPRAY MUCOUS MEM (09:29)
[2024-09-12 09:38] VITALS: BP 121/71; PULSE 82; RESP 20; O2SAT 97
[2024-09-12 09:48] VITALS: BP 133/75; PULSE 73; RESP 20; O2SAT 100
[2024-09-12 09:58] VITALS: BP 123/77; PULSE 66; RESP 17; O2SAT 100
== END 2024-09-12 10:10 | disposition home or self-care (01) ==
PROVIDERS: PCP Internal Medicine; Referring Provider Nurse Practitioner; Visit Provider Internal Medicine Gastroenterology
PROC: 0DJ08ZZ Inspection of Upper Intestinal Tract, Via Natural or Artificial Opening Endoscopic (ICD-10-PCS; CPT 43239; principal; 2024-09-12 10:00)
DX: K20.0 Eosinophilic esophagitis (principal); R13.10 Dysphagia, unspecified; E66.9 Obesity, unspecified; Z68.39 Body mass index [BMI] 39.0-39.9, adult
CPT/HCPCS: 43239; 88305; J2003; J2704; J7120